=== PATIENT | male | born 1935 | race Caucasian/White ===

== ENCOUNTER → 2016-08-09 | Outpatient (CLI) | payer BC ==
[~2016-08-09] MED LIST: ALBU1AER9 INH; BISA5TAB PO; CALC500C3 PO; DOXY1TAB6 PO; FLVHFA110 INH; GLIP5TAB3 PO; INSDGI SC; INSUINJ14 SC; PRDFOPS OPB; PRED1SUS3 OPB; PRS5 PO; TAMS0.4C38 PO
== END | disposition home or self-care (01) ==
LOC: C.LAB1850 09:42
PROVIDERS: ATTEND Dermatology
DX: C61 Malignant neoplasm of prostate (principal)

== ENCOUNTER → 2016-09-12 | Outpatient (CLI) | payer BC ==
--- NOTE | 2016-09-12 15:22 | DIAGNOSTIC IMAGING REPORT ---
CHEST 2 VIEWS ROUTINE CLINICAL HISTORY: Shortness of breath, cough, respiratory tract infection COMPARISON STUDY: 02/16/2016 FINDINGS: The heart is mildly enlarged. There is mild elevation right hemidiaphragm. There is no failure. There is no focal pulmonary consolidation. There are no pleural effusions.[ IMPRESSION: No active disease in the chest. Electronically signed by: Tiago Michel M.D. 09/12/2016 3:21 PM Dictated Date/Time: 09/12/2016 3:20 PM
== END | disposition home or self-care (01) ==
LOC: C.RAD 14:56
PROVIDERS: ATTEND Family Medicine
DX: J22 Unspecified acute lower respiratory infection (principal)

== ENCOUNTER 2016-09-23 10:10 | Emergency (ER) | payer BC ==
[~2016-09-23] VITALS: Ht 172.7 cm; Wt 99.0 kg
[~2016-09-23 10:10] MED LIST changes: -DOXY1TAB6 PO; -FLVHFA110 INH; -PRDFOPS OPB
[2016-09-23 10:19] VITALS: Ht 172.7 cm; Wt 99.0 kg
[2016-09-23 10:51] VITALS: O2SAT 93
[2016-09-23] MEDS ORDERED: PRDFOPS OPB (10:59)
[2016-09-23] MEDS ORDERED: PRS5 PO (10:59)
[2016-09-23] MEDS ORDERED: FLVHFA110 INH (10:59)
--- NOTE | 2016-09-23 11:03 | EMERGENCY ROOM VISIT NOTE ---
History Report prepared by Evan: Denise Bray Under the Supervision of: Dr. Gilbert Chowdhury M.D. First contact with patient: 10:33 Chief Complaint: COUGH Stated Complaint: COUGH, MUCUS RUNS DOWN BACK OF THROAT History of Present Illness The patient is an 81 year old male who presents to the Emergency Room with complaints of a persistent illness that began one month ago. The patient states that two weeks ago he was placed on an antibiotic, but states that he is now on Flovent. He states that he has been experiencing a productive cough with congestion. He states that he has been diaphoretic and feverish. The patient notes that he is a diabetic. He states that he has had normal bowel movements, urination, appetite, and fluid intake. The patient notes that he had a chest x-ray earlier this week that did not show any signs of pneumonia. He denies being on any current blood thinners. Source of History: patient Onset: one month ago Position: other (global) Quality: other (illness) Timing: other (persistent) Associated Symptoms: + cough, + diaphoresis, + fevers Note: Associated Symptoms: congestion Review of Systems All systems have been listed, reviewed, and are negative other than those previously mentioned. Please see Additional Medical History Sheet. Past Medical & Surgical Medical Problems: (1) Diab Romi Wo Compl, Type Ii Or Unspec Type, Not Uncntrld (2) diverticulitis , rectal bleeding (3) Diverticulosis Colon (W/O Ment Of Hemorrhage) (4) Hyperlipidemia Nec/Nos (5) Hypertension Nos (6) Hypertrophy (Benign) Of Prostate W/O Urinary Obst & Oth Luts Family History Cancer Diabetes mellitus Lung disease Social History Smoking Status: Former Smoker Alcohol Use: none Drug Use: none Marital Status: Housing Status: lives with significant other Occupation Status: retired Current/Historical Medications Scheduled Doxycycline Hyclate (Doxycycline Hyclate), 1 TAB PO BID Finasteride (Finasteride), 5 MG PO QAM Fluticasone Propionate (Flovent Hfa), 2 PUFFS INH Q12 Glipizide (Glucotrol), 5 MG PO BID Insulin Glargine (Lantus), 40 UNITS SC QPM Prednisolone Acetate (Prednisolone Acetate), 1 DROP OPB QID Tamsulosin Hcl (Flomax), 0.4 MG PO QAM Scheduled PRN Bisacodyl (Ex-Lax Ultra), 1-2 TAB PO UD PRN for Constipation Calcium Carbonate (Tums), 1,000-1,500 MG PO for GI Upset Allergies Coded Allergies: Codeine (Verified Allergy, Unknown, FUNNY FEELING ON FACE, 09/23/16) Niacin (Verified Adverse Reaction, Unknown, FLUSHED, 09/23/16) Physical Exam Vital Signs Date Time Temp Pulse Resp B/P Pulse Ox O2 Delivery O2 Flow Rate FiO2 09/23/16 14:00 98 16 160/91 93 Room Air 09/23/16 13:44 98 93 09/23/16 12:08 87 16 166/91 95 Nasal Cannula 2.0 09/23/16 11:08 82 09/23/16 11:00 90 16 139/91 95 Nasal Cannula 2.0 09/23/16 10:51 93 Nasal Cannula 2.0 09/23/16 10:51 93 Nasal Cannula 2.0 09/23/16 10:46 100 20 178/94 91 Room Air 09/23/16 10:39 94 Room Air 09/23/16 10:19 36.6 100 20 145/80 95 Room Air Physical Exam GENERAL: Patient awake, alert, oriented x 3. Patient follows commands. Patient does not appear toxic. Patient is adequately hydrated and well- nourished. SKIN: No erythema, pallor, cyanosis or rash HEENT: Normal head, pupils equal, reactive to light and accommodation. Ears normal. Oral cavity and posterior pharynx appear normal. Neck: Without adenopathy, no neck vein distention. LUNGS: Clear to auscultation. No wheezes, no rales, no rhonchi. HEART: No murmurs. No gallops. No rubs ABDOMEN: Obese. No masses, no rebound, no hepatomegaly or splenomegaly. EXTREMITIES: No signs of trauma. No pedal or pretibial edema. No calf or thigh tenderness. NEUROLOGIC: Cranial nerves II-XII within normal limits. No gross motor sensory function deficits. Medical Decision & Procedures ER Provider Diagnostic Interpretation: X ray results are stated below per my interpretation and the radiologist's interpretation. CHEST 2 VIEWS ROUTINE CLINICAL HISTORY: Cough. COMPARISON STUDY: Chest radiograph September 12, 2016. FINDINGS: Elevation/eventration of the right hemidiaphragm is unchanged. Cardiomediastinal silhouette is stable. There is no pneumothorax or pleural effusion. There is no evidence of pulmonary edema. There is subtle asymmetric interstitial thickening within the right lower lung which may reflect a mild infectious process. IMPRESSION: No consolidation. Subtle asymmetric interstitial thickening within the right lower lung which could reflect a mild infectious process. Electronically signed by: Arjun Guillory M.D. 09/23/2016 11:54 AM Dictated Date/Time: 09/23/2016 11:52 AM Laboratory Results 09/23/16 11:14 Red Blood Count 4.87, Mean Corpuscular Volume 88.9, Mean Corpuscular Hemoglobin 31.0, Mean Corpuscular Hemoglobin Concent 34.9, Mean Platelet Volume 11.4, Neutrophils (%) (Auto) 76.2, Lymphocytes (%) (Auto) 11.8, Monocytes (%) (Auto) 8.5, Eosinophils (%) (Auto) 2.9, Basophils (%) (Auto) 0.4, Neutrophils # (Auto) 8.80, Lymphocytes # (Auto) 1.36, Monocytes # (Auto) 0.98, Eosinophils # (Auto) 0.33, Basophils # (Auto) 0.05 09/23/16 11:14 Test 09/23/16 11:02 09/23/16 11:14 Influenza Type A (RT-PCR) Neg for Influ A (NEG) Influenza Type B (RT-PCR) Neg for Influ B (NEG) White Blood Count 11.54 K/uL (4.8-10.8) Red Blood Count 4.87 M/uL (4.7-6.1) Hemoglobin 15.1 g/dL (14.0-18.0) Hematocrit 43.3 % (42-52) Mean Corpuscular Volume 88.9 fL (80-100) Mean Corpuscular Hemoglobin 31.0 pg (25-34) Mean Corpuscular Hemoglobin Concent 34.9 g/dl (32-36) Platelet Count 377 K/uL (130-400) Mean Platelet Volume 11.4 fL (7.4-10.4) Neutrophils (%) (Auto) 76.2 % Lymphocytes (%) (Auto) 11.8 % Monocytes (%) (Auto) 8.5 % Eosinophils (%) (Auto) 2.9 % Basophils (%) (Auto) 0.4 % Neutrophils # (Auto) 8.80 K/uL (1.4-6.5) Lymphocytes # (Auto) 1.36 K/uL (1.2-3.4) Monocytes # (Auto) 0.98 K/uL (0.11-0.59) Eosinophils # (Auto) 0.33 K/uL (0-0.5) Basophils # (Auto) 0.05 K/uL (0-0.2) RDW Standard Deviation 41.5 fL (36.4-46.3) RDW Coefficient of Variation 12.8 % (11.5-14.5) Immature Granulocyte % (Auto) 0.2 % Immature Granulocyte # (Auto) 0.02 K/uL (0.00-0.02) Prothrombin Time 10.9 SECONDS (9.0-12.0) Prothromb Time International Ratio 1.0 (0.9-1.1) Anion Gap 8.0 mmol/L (3-11) Est Creatinine Clear Calc Drug Dose 40.6 ml/min Estimated GFR () 45.8 Estimated GFR (Non- 39.5 BUN/Creatinine Ratio 13.1 (10-20) Calcium Level 9.1 mg/dl (8.5-10.1) Beta-Hydroxybutyric Acid 0.89 mg/dL (0.2-2.81) Laboratory results as stated above per my review. Medications Administered Medications (Trade) Dose Ordered Sig/Maura Route Start Time Stop Time Status Last Admin Dose Admin Albuterol (Ventolin Hfa Inhaler) 2 puffs NOW STAT INH 09/23/16 14:24 09/23/16 14:25 DC 09/23/16 14:39 2 PUFFS Insulin Human Regular (novoLIN-R U-100 PER UNIT) 8 units NOW STAT SC 09/23/16 14:29 09/23/16 14:30 DC 09/23/16 14:38 8 UNITS ECG Indication: other (illness) Rate (beats per minute): 97 Rhythm: normal sinus Findings: no acute ischemic change, no ectopy ED Course 1042: Past medical records reviewed. The patient was evaluated in room C2A. A complete history and physical examination was performed. 1319: I reevaluated the patient and he is doing well. The patient was previously on an antibiotic and the family is going to see what type it was. He is going to have an ambulatory trial. 1424: Ordered Albuterol 2 puffs INH. 1429: Ordered Insulin Human Regular 8 units sc. 1430: I reevaluated the patient and he is doing well. I discussed the exam findings with him and I discussed the treatment plan. He verbalized complete understanding and agreement. He is ready to go home. Medical Decision Nurses notes reviewed. Medical history sheet reviewed. Differential diagnosis includes but is not limited to: upper respiratory infection, pneumonia, bronchitis, other viral infection, influenza. Multiple labs, EKG and imaging were obtained. Please see above. The patient's blood sugar is elevated. He was given insulin. The patient has a questionable infiltrate on his chest x-ray. The patient was previously on Augmentin. He will be started on doxycycline. The patient was also encouraged to continue using albuterol. The patient is currently not hypoxic while here in the ED and I believe can safely return home. Impression Primary Impression: Pneumonitis Additional Impression: Diabetes mellitus out of control Scribe Attestation The scribe's documentation has been prepared under my direction and personally reviewed by me in its entirety. I confirm that the note above accurately reflects all work, treatment, procedures, and medical decision making performed by me. Departure Information Dispostion Home / Self-Care (Doxycycline) Prescriptions Doxycycline Hyclate (DOXYCYCLINE HYCLATE) 100 Mg Tab 1 TAB PO BID for 10 Days, #20 TAB Prov: Gilbert Chowdhury M.D. 09/23/16 Referrals Elio Benitez M.D. (PCP) Forms HOME CARE DOCUMENTATION FORM, IMPORTANT VISIT INFORMATION Patient Instructions My [facility] [address] [place] Additional Instructions One doxycycline twice a day for 10 days. Albuterol/Ventolin inhaler 2 puffs every 4 hours as needed for cough or shortness of breath. 650 mg of Tylenol every 4 hours as needed for aches, pain or fever. Drink extra fluids. Follow-up with your family physician within the next 10 days. Recheck your blood sugar when you get home. Take insulin according to your sliding scale. REST Problem Qualifiers
[2016-09-23 11:22] LABS: BASO % 0.4 %; BASO ABS # 0.05 K/uL (0-0.2); COMPLETE YES; EOS % 2.9 %; HEMATOCRIT 43.3 % (42-52); IG% 0.2 %; LYMPH % 11.8 %; LYMPH ABS # 1.36 K/uL (1.2-3.4); MEAN CELL VOLUME 88.9 fL (80-100); MEAN CORPUSCULAR HGB CONC 34.9 g/dl (32-36); MEAN PLATELET VOLUME 11.4 fL (7.4-10.4); MONO % 8.5 %; NEUT % 76.2 %; PLATELET COUNT 377 K/uL (130-400); RED BLOOD COUNT 4.87 M/uL (4.7-6.1); WHITE BLOOD COUNT 11.54 K/uL (4.8-10.8)
[2016-09-23 11:31] LABS: PROTHROMBIN TIME (PATIENT) 10.9 SECONDS (9.0-12.0)
[2016-09-23 11:39] LABS: BUN/CREATININE RATIO 13.1 (10-20); CALCIUM 9.1 mg/dl (8.5-10.1); CREATININE 1.6 mg/dl (0.60-1.40); POTASSIUM 4.8 mmol/L (3.5-5.1)
[2016-09-23 11:48] LABS: BETA-HYDROXYBUTYRATE 0.89 mg/dL (0.2-2.81)
--- NOTE | 2016-09-23 11:55 | DIAGNOSTIC IMAGING REPORT ---
CHEST 2 VIEWS ROUTINE CLINICAL HISTORY: Cough. COMPARISON STUDY: Chest radiograph September 12, 2016. FINDINGS: Elevation/eventration of the right hemidiaphragm is unchanged. Cardiomediastinal silhouette is stable. There is no pneumothorax or pleural effusion. There is no evidence of pulmonary edema. There is subtle asymmetric interstitial thickening within the right lower lung which may reflect a mild infectious process. IMPRESSION: No consolidation. Subtle asymmetric interstitial thickening within the right lower lung which could reflect a mild infectious process. Electronically signed by: Arjun Guillory M.D. 09/23/2016 11:54 AM Dictated Date/Time: 09/23/2016 11:52 AM
[2016-09-23 12:56] LABS: INFLUENZA A PCR Neg for Influ A (NEG); INFLUENZA B PCR Neg for Influ B (NEG)
[2016-09-23] MEDS ORDERED: ALBUTEROL HFA 8 GM INHALER INH STA (14:24)
[2016-09-23] MEDS ORDERED: DOXY1TAB6 PO (14:27)
[2016-09-23] MEDS ORDERED: NovoLIN-R INSULIN PER UNIT CHARGE SC STA (14:29)
[2016-09-23 15:03] VITALS: BP 131/83; PULSE 98; O2SAT 93
== END 2016-09-23 15:04 | disposition home or self-care (01) ==
LOC: C.EDB 10:13 → C.EDC 15:04
DX: J18.9 Pneumonia, unspecified organism (principal); E11.65 Type 2 diabetes mellitus with hyperglycemia; E66.9 Obesity, unspecified; E78.5 Hyperlipidemia, unspecified; I10 Essential (primary) hypertension; N40.0 Benign prostatic hyperplasia without lower urinary tract symptoms; Z79.4 Long term (current) use of insulin; Z79.84 Long term (current) use of oral hypoglycemic drugs; Z79.899 Other long term (current) drug therapy; Z88.5 Allergy status to narcotic agent; Z88.8 Allergy status to other drugs, medicaments and biological substances; Z87.891 Personal history of nicotine dependence; Z83.3 Family history of diabetes mellitus; Z83.6 Family history of other diseases of the respiratory system

== ENCOUNTER → 2016-11-01 | Outpatient (CLI) | payer BC ==
[~2016-11-01] MED LIST changes: -ALBU1AER9 INH; +FLVHFA110 INH; -INSUINJ14 SC; +PRDFOPS OPB; -PRED1SUS3 OPB
--- NOTE | 2016-11-01 10:04 | DIAGNOSTIC IMAGING REPORT ---
TWO VIEW CHEST CLINICAL HISTORY: Cough. Bronchitis. FINDINGS: PA and lateral chest radiographs are compared to study dated 09/23/2016. The heart is mildly enlarged and there is atherosclerotic calcification of the thoracic aorta. The pulmonary vasculature is noncongested. Mild chronic elevation of the right hemidiaphragm is similar to previous. There is chronic interstitial thickening and apical scarring. No airspace consolidation or pleural effusion is identified.. There is no pneumothorax. The skeletal structures are osteopenic. The bony thorax appears intact. IMPRESSION: Mild cardiac enlargement with no active disease in the chest. Electronically signed by: Lazaro Bustillos M.D. 11/01/2016 10:03 AM Dictated Date/Time: 11/01/2016 10:02 AM
== END | disposition home or self-care (01) ==
LOC: C.RAD 09:39
PROVIDERS: ATTEND Family Medicine
DX: J40 Bronchitis, not specified as acute or chronic (principal); I51.7 Cardiomegaly

== ENCOUNTER 2022-11-12 13:10 | Inpatient (IN) ==
--- NOTE | 2022-11-12 13:34 | Emergency Department Note ---
History of Present Illness General Chief complaint: Confusion Stated complaint: CONFUSED Time Seen by Provider: 11/12/22 13:18 Source: patient, family ( and daughter who are at the bedside), RN notes reviewed and old records reviewed Mode of arrival: ambulatory Limitations: no limitations History of Present Illness This patient is a 87-year-old male who is brought in by his family after they feel he has had increasing confusion over the last several weeks to months. No fall denies pain anywhere. no headache. no chest pain. no shortness of breath.his appetites been good. he has been eating and drinking as normal. He does have diabetes and takes insulin his blood sugar yesterday was 108. He has had no episodes of hypoglycemia. No fever chills or cough. No blood or melena in his stool. Normal bowel movements he has chronic blood in his urine due to prostate and bladder cancer history. No focal numbness or weakness no di fficulty speaking or swallowing. No fall or trauma. Home Medications Medication Instructions Recorded Confirmed Type insulin glargine 100 unit/mL (3 40 unit subcut QPM 07/04/18 04/25/22 History mL) subcutaneous pen (Basaglar KwikPen U-100 Insulin) tamsulosin 0.4 mg capsule 0.4 mg PO QAM 07/04/18 04/25/22 History magnesium oxide 400 mg PO DAILY 08/29/18 04/25/22 History prednisolone acetate (PF) 1 % eye 1 drp OPB DAILY 08/29/18 04/25/22 History drops,suspension Allergies Allergy/AdvReac Type Severity Reaction Status Date / Time ciprofloxacin Allergy Unknown Rash Verified 04/25/22 14:27 codeine Allergy Unknown FUNNY Verified 04/25/22 14:27 FEELING ON FACE niacin AdvReac Unknown FLUSHED Verified 04/25/22 14:27 Past Med/Surg History Medical History Bladder cancer (09/17/14) CKD (chronic kidney disease) Diabetes mellitus, type 2 IDDM Diverticulosis History of pneumonia RECURRENT PNEUMONIA (MOST RECENT 2016)- INHALER PRN Hyperlipidemia Stopped his medications for this on his own Obesity Prostate cancer Skin cancer of face Surgical History H/O vasectomy History of arthroscopy RIGHT KNEE History of back surgery LUMBAR History of bladder surgery TURBT History of cataract surgery Bilateral History of eye surgery Bilateral cornea transplants History of surgery TURBT and prostate biopsy 07/18/18 History of tooth extraction Hx of shoulder surgery Left shoulder surgery Family History Mother , in her 70s; Diabetes Emphysema lung Glaucoma Sister , Pt uncertain of her age of ;pt uncertain of her health history No problems noted. Brother , Pt uncertain of his health history; Family history of diabetes mellitus COPD (chronic obstructive pulmonary disease) Father , 90yo Suicide Brother , Pt uncertain of his healthy history; Diabetes Daughter No problems noted. 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; Feels Safe at Home: Yes caffeine: Yes (1-2 cups/day) during the past year weight has: remained stable Assistive Devices: Glasses and Hearing Aid - Bilateral Review of Systems A total of 10 systems reviewed and were otherwise negative Physical Exam Vital Signs Vital Signs - 24 hr 11/12/22 13:12 11/12/22 13:40 11/12/22 14:30 Temperature 36.3 C L Temperature Source Temporal Artery Scan Pulse Rate 78 85 Respiratory Rate 18 Respiratory Effort / Characteristics Non-Labored Spontaneous Respiratory Depth Normal Respiratory Pattern Regular Blood Pressure 138/67 Blood Pressure Mean 90 Blood Pressure Position Sitting Pulse Oximetry 96 Oxygen Delivery Method Room Air Room Air Sepsis Recent Fever Within 48 Hours No Sepsis New/Unexplained Change in Mental Status N/A Sepsis Action Taken by Nursing No Action Required General: Well developed well nourished older male who is awake and talkative making jokes. He is alert and orient x3 answering questions appropriately in no acute distress, breathing comfortably on room air. Normal speech, nonslurred. No aphasia HEENT: Normal cephalic atraumatic. Pupils are equal round and reactive to light. Extraocular movements are intact. Oropharynx is pink with moist mucous membranes. No swelling of the mouth lips or tongue. Neck: Supple with a midline trachea. No meningeal signs or stiffness, no JVD or bruits. No Stridor. Chest: Clear to auscultation bilaterally. No wheezes or rhonchi. No increased work of breathing. Heart: Regular rate and rhythm without murmurs or gallops. Abdomen: Soft nontender, nondistended without rebound guarding or rigidity. Extremities: No cyanosis clubbing or edema. No calf tenderness or assymetry Spine/Back. Non tender to palpation. No CVA tenderness Skin: Good turgor without rashes. Neurologic exam: Cranial nerves two through 12 are intact. Motor and sensation are intact and symmetrical throughout. No pronator drift. No tremor. Medical Decision Making Differential Diagnosis Intracranial hemorrhage or process, electrolyte or metabolic abnormality, cardiac disease, infection, diabetic complication, urinary tract infection Medical Records Attestation: I reviewed the patient's medical records. Home Medications Current Medication List: was personally reviewed by me Laboratory Data Attestation: I reviewed the patient's lab results. 11/12/22 13:40 11/12/22 13:40 Lab Results 11/12/22 11/12/22 11/12/22 Range/Units 13:40 13:40 13:40 WBC 9.84 (4.8-10.8) K/ul RBC 3.84 L (4.70-6.10) M/uL Hgb 10.9 L (14.0-18.0) g/dl Hct 33.6 L (42.0-52.0) % MCV 87.5 (80.0-100.0) fL MCH 28.4 (25.0-34.0) pg MCHC 32.4 (32.0-36.0) g/dL RDW Std Deviation 41.1 (36.4-46.3) fL RDW Coeff of [place] 13.0 (11.5-14.5) % Plt Count 322 (130-400) K/uL MPV 11.7 (9.4-12.4) fL Immature Gran % (Auto) 0.4 % Neut % (Auto) 77.2 % Lymph % (Auto) 8.9 % [place] % (Auto) 8.4 % Eos % (Auto) 4.0 % Baso % (Auto) 1.1 % Neut # (Auto) 7.59 H (1.40-6.50) K/uL Lymph # (Auto) 0.88 L (1.2-3.4) K/uL [place] # (Auto) 0.83 H (0.11-0.59) K/uL Eos # (Auto) 0.39 (0-0.50) K/uL Baso # (Auto) 0.11 (0-0.2) K/uL Immature Gran # (Auto) 0.04 (0.01-0.20) K/uL Sodium 135 L (136-145) mmol/L Potassium 5.1 (3.5-5.1) mmol/L Chloride 106 (98-107) mmol/L Carbon Dioxide 25 (21-32) mmol/L Anion Gap 4 (3-11) BUN 59 H (6-23) mg/dl Creatinine 4.74 H* (0.6-1.4) mg/dl Est Cr Clr Drug Dosing 11.7 ml/min Est GFR ( Amer) 11.8 ml/min Est GFR (Non-Af Amer) 10.2 ml/min BUN/Creatinine Ratio 12.4 (10-20) Glucose 102 H (70-99(Fasting)) mg/dl Calcium 8.0 L (8.6-10.3) mg/dl Total Bilirubin 0.4 (0.2-1.0) mg/dl AST 9 L (13-39) U/L ALT 7 (7-52) U/L Alkaline Phosphatase 83 (34-104) U/L Total Protein 5.9 L (6.0-8.3) gm/dl Albumin 3.2 L (3.4-5.0) gm/dl Globulin 2.7 (2.5-4.0) gm/dl Albumin/Globulin Ratio 1.2 (0.9-2) TSH 3.955 (0.300-4.500) uIu/ml Urine Color Urine Appearance (Clear) Urine pH (4.5-7.5) Ur Specific [place] (1.000-1.030) Urine Protein (Negative) Urine Glucose (UA) (Negative) Urine Ketones (Negative) Urine Blood (Negative) Urine Nitrite (Negative) Urine Bilirubin (Negative) Urine Urobilinogen (Negative) Ur Leukocyte Esterase (Negative) Urine RBC (0-4) /hpf Urine WBC (0-5) /hpf Ur Epithelial Cells (0-5) /lpf Urine Bacteria (Negative) 11/12/22 Range/Units 13:45 WBC (4.8-10.8) K/ul RBC (4.70-6.10) M/uL Hgb (14.0-18.0) g/dl Hct (42.0-52.0) % MCV (80.0-100.0) fL MCH (25.0-34.0) pg MCHC (32.0-36.0) g/dL RDW Std Deviation (36.4-46.3) fL RDW Coeff of [place]via (11.5-14.5) % Plt Count (130-400) K/uL MPV (9.4-12.4) fL Immature Gran % (Auto) % Neut % (Auto) % Lymph % (Auto) % [place] % (Auto) % Eos % (Auto) % Baso % (Auto) % Neut # (Auto) (1.40-6.50) K/uL Lymph # (Auto) (1.2-3.4) K/uL [place] # (Auto) (0.11-0.59) K/uL Eos # (Auto) (0-0.50) K/uL Baso # (Auto) (0-0.2) K/uL Immature Gran # (Auto) (0.01-0.20) K/uL Sodium (136-145) mmol/L Potassium (3.5-5.1) mmol/L Chloride (98-107) mmol/L Carbon Dioxide (21-32) mmol/L Anion Gap (3-11) BUN (6-23) mg/dl Creatinine (0.6-1.4) mg/dl Est Cr Clr Drug Dosing ml/min Est GFR ( Amer) ml/min Est GFR (Non-Af Amer) ml/min BUN/Creatinine Ratio (10-20) Glucose (70-99(Fasting)) mg/dl Calcium (8.6-10.3) mg/dl Total Bilirubin (0.2-1.0) mg/dl AST (13-39) U/L ALT (7-52) U/L Alkaline Phosphatase (34-104) U/L Total Protein (6.0-8.3) gm/dl Albumin (3.4-5.0) gm/dl Globulin (2.5-4.0) gm/dl Albumin/Globulin Ratio (0.9-2) TSH (0.300-4.500) uIu/ml Urine Color Red Urine Appearance Cloudy A (Clear) Urine pH 6.5 (4.5-7.5) Ur Specific [place] 1.020 (1.000-1.030) Urine Protein 3+ H (Negative) Urine Glucose (UA) Negative (Negative) Urine Ketones Negative (Negative) Urine Blood 3+ H (Negative) Urine Nitrite Negative (Negative) Urine Bilirubin Negative (Negative) Urine Urobilinogen Negative (Negative) Ur Leukocyte Esterase Trace H (Negative) Urine RBC >30 H (0-4) /hpf Urine WBC 5-10 H (0-5) /hpf Ur Epithelial Cells 0-5 (0-5) /lpf Urine Bacteria 1+ H (Negative) Imaging Data Attestation: I personally reviewed and interpreted this imaging study as fo llows: My Impression: Head CTthere is hypodensity in the right thalamus area. No acute hemorrhage or mass effect Chest x-rayno acute infiltrate, failure, pneumothorax seen Radiologist's Impression: Chest X-Ray 11/12/22 13:27 XR chest 1V portable CLINICAL HISTORY: weakness COMPARISON STUDY: Chest radiograph July 05, 2018. FINDINGS: Lung volumes are normal. Lungs are clear. There is no pneumothorax or pleural effusion. Cardiomediastinal silhouette is stable. There is no evidence for pulmonary edema. IMPRESSION: No acute cardiopulmonary findings. ACT 112: Negative or not required by law. Electronically signed by: Arjun Guillory M.D. 11/12/2022 2:[address] 11/12/22 13:27 CT OF THE HEAD WITHOUT CONTRAST CLINICAL HISTORY: Confusion. COMPARISON STUDY: No previous studies for comparison. CT DOSE: 773.57 mGy.cm TECHNIQUE: Helical axial images of the head were obtained without IV contrast. Automated exposure control was utilized for the study. A dose lowering technique was utilized adhering to the principles of ALARA. FINDINGS: No acute intracranial hemorrhage, midline shift or mass effect is present. Mild atrophy is noted. White matter hypodensity suggests small vessel disease. There is a 1.2 cm hypodensity within the anterior right thalamus on axial image 12 of 28. The ventricular system is unremarkable. The basal cisterns are patent. No extra-axial collections are present. There are no findings to suggest acute dural sinus thrombosis or acute territorial infarct. No significant calvarial abnormalities are present. Visualized portions of the sinuses and mastoid air cells are clear. IMPRESSION: 1. No acute intracranial hemorrhage. 2. Age indeterminate 1.2 cm infarct within the anterior right thalamus. ACT 112: Negative or not required by law. Electronically signed by: Arjun Guillory M.D. 11/12/2022 2:12 PM ECG Data Attestation: I personally reviewed and interpreted this ECG as follows: Indication: + weakness Rate (beats per minute): 79 Rhythm: + normal sinus and + other (Somewhat poor baseline due to artifact) ECG Intervals/blocks: + First degree AV block, + Normal QRS and + Prolonged QT ECG [place]: + Normal ECG ST segments: + Normal ST segments ECG Findings: + Other (Nonspecific T wave abnormality); no PACs or no PVCs Comparison ECG Date: from (06/25/18) Change: no significant change MDM Narrative This patient comes in with family is concerned that he is having increasing confusion over the last several weeks to months. He also says he feels foggy he seems fine when I talk to him. He has a normal neurologic exam answers all questions appropriately. IV access was established, blood work was obtained, EKG and urinalysis were also ordered. He was placed on a monitor tech in r oom B4. CAT scan was obtained. It does show a hypodensity/age in determinate stroke of the thalamus. Additionally blood work was significant for anemia with a hemoglobin of 10. The patient's had some chronic ongoing blood loss in his urine. That could be the culprit. He denies that he had a blood or black colors in his stool. He also has a creatinine of 4.6 which is significantly up compared to baseline. Potassium is not significantly elevated. Because of the elevated kidney function, intermittent confusion and need for a neuro/stroke work-up. I do think the patient needs to be admitted/observed. I have consulted the [facility] hospitalist to see him in the ER. COVID testing was negative. Continuous cardiac monitoring: Orders placed in EMR for continuous cardiac monitoring. Upon my interpretation patient was noted to be in normal sinus rhythm with a rate of 75 Impression & Plan Acute confusion, Right thalamic infarction, Lab test negative for COVID-19 virus, Renal failure, Anemia, Hematuria Discharge Plan Visit Data Chief Complaint: Confusion Stated Complaint: CONFUSED ED Provider: Gurinder Rose Discharge Problem: Acute confusion, Right thalamic infarction, Lab test negative for COVID-19 virus, Renal failure, Anemia, Hematuria Forms Stand Alone Forms: My [facility] Prescriptions Prescriptions: No Action tamsulosin 0.4 mg Capsule 0.4 mg PO QAM Basaglar KwikPen U-100 Insulin 100 unit/mL (3 mL) Insulin Pen 40 unit SUBCUT QPM magnesium oxide 400 mg magnesium tablet 400 mg PO DAILY Rx Instructions: AM prednisolone acetate (PF) 1 % drops,suspension 1 drp OPB DAILY Patient Comments: One drop daily to left eye Referrals Referrals: Elio Benitez MD [Primary Care Provider] -
[2022-11-12 14:01] LABS: Basophils # (auto) 0.11 K/uL (0-0.2); Basophils % (auto) 1.1 %; Eosinophils # (auto) 0.39 K/uL (0-0.50); Hematocrit (blood only) 33.6 % (42.0-52.0); Hemoglobin 10.9 g/dl (14.0-18.0); Immature Granulocytes # (auto) 0.04 K/uL (0.01-0.20); Immature Granulocytes % (auto) 0.4 %; Lymphocytes # (auto) 0.88 K/uL (1.2-3.4); Lymphocytes % (auto) 8.9 %; Mean Corpuscular Hemoglobin 28.4 pg (25.0-34.0); Mean Corpuscular Hgb Conc 32.4 g/dL (32.0-36.0); Mean Corpuscular Volume 87.5 fL (80.0-100.0); Mean Platelet Volume 11.7 fL (9.4-12.4); Monocytes # (auto) 0.83 K/uL (0.11-0.59); Monocytes % (auto) 8.4 %; Neutrophils # (auto) 7.59 K/uL (1.40-6.50); Neutrophils % (auto) 77.2 %; Platelet Count 322 K/uL (130-400); RDW Standard Deviation 41.1 fL (36.4-46.3); Red Blood Count 3.84 M/uL (4.70-6.10); White Blood Count 9.84 K/ul (4.8-10.8)
[2022-11-12 14:04] LABS: Appearance Urine Cloudy (Clear); Bilirubin Urine Negative (Negative); Blood Urine 3+ (Negative); Color Urine Red; Glucose Urine UA Negative (Negative); Ketones Urine Negative (Negative); Leukocyte Esterase Urine Trace (Negative); Nitrite Urine Negative (Negative); Protein Urine 3+ (Negative); Urobilinogen Urine Negative (Negative); pH Urine 6.5 (4.5-7.5)
[2022-11-12 14:11] LABS: RBC Urine >30 /hpf (0-4)
[2022-11-12 14:12] LABS: Bacteria Urine 1+ (Negative); Epithelial Cell Urine 0-5 /lpf (0-5)
--- NOTE | 2022-11-12 14:13 | CT Scan Report ---
CT OF THE HEAD WITHOUT CONTRAST CLINICAL HISTORY: Confusion. COMPARISON STUDY: No previous studies for comparison. CT DOSE: 773.57 mGy.cm TECHNIQUE: Helical axial images of the head were obtained without IV contrast. Automated exposure con trol was utilized for the study. A dose lowering technique was utilized adhering to the principles o f ALARA. FINDINGS: No acute intracranial hemorrhage, midline shift or mass effect is present. Mild atrophy is noted. White matter hypodensity suggests small vessel disease. There is a 1.2 cm hypodensity within t he anterior right thalamus on axial image 12 of . The ventricular system is unremarkable. The basal cisterns are patent. No extra-axial collections are present. There are no findings to suggest acute dural sinus thrombosis or acute territorial infarct. No significant calvarial abnormalities are prese nt. Visualized portions of the sinuses and mastoid air cells are clear. IMPRESSION: 1. No acute intracranial hemorrhage. 2. Age indeterminate 1.2 cm infarct within the anterior right thalamus. ACT 112: Negative or not required by law. Electronically signed by: Arjun Guillory M.D. 11/12/2022 2:12 PM
--- NOTE | 2022-11-12 14:18 | XRay Report ---
XR chest 1V portable CLINICAL HISTORY: weakness COMPARISON STUDY: Chest radiograph July 05, 2018. FINDINGS: Lung volumes are normal. Lungs are clear. There is no pneumothorax or pleural effusion. Car diomediastinal silhouette is stable. There is no evidence for pulmonary edema. IMPRESSION: No acute cardiopulmonary findings. ACT 112: Negative or not required by law. Electronically signed by: Arjun Guillory M.D. 11/12/2022 2:16 PM
[2022-11-12 14:22] LABS: Alanine Aminotransferase 7 U/L (7-52); Albumin Globulin Ratio 1.2 (0.9-2); Albumin Level 3.2 gm/dl (3.4-5.0); Alkaline Phosphatase 83 U/L (34-104); Anion Gap 4 (3-11); Aspartate Aminotransferase 9 U/L (13-39); BUN Creatinine Ratio 12.4 (10-20); Bilirubin,Total 0.4 mg/dl (0.2-1.0); Blood Urea Nitrogen 59 mg/dl (6-23); Carbon Dioxide 25 mmol/L (21-32); Chloride 106 mmol/L (98-107); Creatinine Clr Calc Pharmacy 11.7 ml/min; Est GFR (African American) 11.8 ml/min; Est GFR (Non-African American) 10.2 ml/min; Globulin 2.7 gm/dl (2.5-4.0); Glucose 102 mg/dl (70-99(Fasting)); Potassium 5.1 mmol/L (3.5-5.1); Sodium 135 mmol/L (136-145); Total Protein 5.9 gm/dl (6.0-8.3)
--- NOTE | 2022-11-12 14:54 | History & Physical Report ---
Date of Service November 12, 2022 Assessment & Plan (1) Failure to thrive: Plan: With associated ambulatory dysfunction, increased confusion and disinhibition Suspect most likely from subacute stroke seen on CT +/- COVID in Jul - possibly both related given COVID increases hypercoagulability ?due to CKD/JESSICA ?from COVID in July since decline appears to follow this timeline ?underlying dementia - TSH WNL, will get B12 with AM labs PT/OT (2) Right thalamic infarction: Plan: Will avoid antiplatelet due to history of urinary retention due to blood clots and ongoing chronic hematuria I suspect most likely this is the cause of his decline - appears to be subacute in nature Given renal function will complete workup with MRA brain and US carotids to assess cerebral arteries Brain MRI wo contrast to assess further strokes Stroke order set - continue NIH scores No need for permissive hypertension given non acute TTE Lipid profile and HbA1C with AM labs PT/OT/speech Consider neuro consult depending on results (3) JESSICA (acute kidney injury): Plan: Nb: patient has persisstent chronic hematuria US renal - to ro obstructive cause given hematuria and history of urinary retention Does not appear dehydrated on exam No specific urinary symtoms to warrant antibiotics but await urine and blood culture (4) Acute confusion: Plan: B12 and TSH with AM labs (5) Anemia: Plan: Iron studies, B12, folate, retic count in AM (6) Bladder cancer: Plan: History of such - consider urology eval given ongoing hematuria (7) Diabetes mellitus, type 2: Plan: HbA1C with AM labs Continue Basaglar (pt prescribed 40 units but only takes 25 units at night) Add Novolog: --Goal BSG Range: Low 110 mg/dL, High 140 mg/dL --Correction Factor: 45 mg/dL/unit --Carbohydrate ratio = 15 g/unit --BSGs ACHS if eating, q6h if npo Consult pharmacy for glycemic control Plan VTE Prophyalxis - chemical contraindicated in setting of gross hematuria Diet - T2DM Disposition - admit to med/tele Admission and Anticipated Discharge Date Admission Date: November 13, 2022 History of Present Illness Chief Complaint: Altered mental status, confusion Primary Care Provider: Elio Benitez MD Kingsley Ross is an 87 year old male who presnts to the ER with multiple concern from his family. He patient initially felt he needed to be here but then also tells me nothing is wrong. History mostly taken from his daughter and at bedside who have all the concerns but timelines are difficult to put together and may not be completely accurate. Relatively subacute deterioration over months but also had some more minor memory problems for the last few years. However dramatic decline over the last 2 months and especially over the last week. He is now sleeping all the time, not getting up to eat the last couple of days. Yesterday he was on the toilet for an hour and either was unable to get up or couldn't remember how. He has had gradual decline in his mobility and now requiring a walker (previously using a cane for many years). Also some concern with change in personality and he has become more mean spirited. Increased confusion and memory retention especially with remembering the right date. Nothing tastes right over the last 6 months. 2 months ago although he was no completely normal his reports they were still doing there usual activities and going out for breakfast and lunch to restaurants. On further questioning in July he had Covid which was treated at home with Simeon. With hindsight decline appears to correlate with getting this. The patient denies any chest pain, presyncope, orthopnea, PND, palpitations, shortness of breath, cough, nasal congestion, sore throat, sinus pain, abnormal pain, change in bowels, unintentional weight loss, hemoptysis, hematemesis, epistaxis, melena or bright red blood in stool. He has chronic hematuria from bladder cancer and was supposed to have 6 monthly cystoscopies although the patient reports he stopped getting these. Allergies Allergy/AdvReac Type Severity Reaction Status Date / Time ciprofloxacin Allergy Unknown Rash Verified 04/25/22 14:27 codeine Allergy Unknown FUNNY Verified 04/25/22 14:27 FEELING ON FACE niacin AdvReac Unknown FLUSHED Verified 04/25/22 14:27 Home Medications Medication Instructions Recorded Confirmed Type insulin glargine 100 unit/mL (3 25 unit subcut QPM 07/04/18 11/12/22 History mL) subcutaneous pen (Basaglar KwikPen U-100 Insulin) tamsulosin 0.4 mg capsule 0.4 mg PO QAM 07/04/18 11/12/22 History magnesium oxide 400 mg PO DAILY 08/29/18 11/12/22 History brimonidine 0.2 %-timolol 0.5 % 1 drp OPB BID 11/12/22 11/12/22 History eye drops difluprednate 0.05 % eye drops 1 drp OPR DAILY 11/12/22 11/12/22 History Past Med/Surg History Medical History (Updated 11/13/22 @ 06:44 by Fabrizio Stallworth MD) Bladder cancer (09/17/14) CKD (chronic kidney disease) Diabetes mellitus, type 2 IDDM Diverticulosis History of pneumonia RECURRENT PNEUMONIA (MOST RECENT 2016)- INHALER PRN Hyperlipidemia Stopped his medications for this on his own Obesity Prostate cancer Skin cancer of face Surgical History H/O vasectomy History of arthroscopy RIGHT KNEE History of back surgery LUMBAR History of bladder surgery TURBT History of cataract surgery Bilateral History of eye surgery Bilateral cornea transplants History of surgery TURBT and prostate biopsy 07/18/18 History of tooth extraction Hx of shoulder surgery Left shoulder surgery Family History Mother , in her 70s; Diabetes Emphysema lung Glaucoma Sister , Pt uncertain of her age of ;pt uncertain of her health history No problems noted. Brother , Pt uncertain of his health history; Family history of diabetes mellitus COPD (chronic obstructive pulmonary disease) Father , 90yo Suicide Brother , Pt uncertain of his healthy history; Diabetes Daughter No problems noted. 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; Other Information That Helps Us Care for You: No Feels Safe at Home: Yes Safety Concerns: Feels Safe At This Time caffeine: Yes (1-2 cups/day) during the past year weight has: remained stable Assistive Devices: Denture - Upper, Denture - Lower, Glasses and Walker Review of Systems Review of Systems: All systems reviewed & are unremarkable except as noted in HPI & below Physical Exam Constitutional: well developed; + not well nourished and no acute distress Eyes: + eyelid abnormality (blepharitis right sided), + conjunctival abnormality (right injected), PERRL and EOM intact bilaterally; no nystagmus ENMT: external ear and nose normal, oropharynx normal Neck: trachea midline, no thyromegaly Respiratory: normal respiratory effort; no respiratory distress Auscultation: + wheezes (expiratory); breath sounds present, no diminished lung sounds, no crackles, no rales and no rhonchi Cardiovascular: Rate/Rhythm: regular rate and regular rhythm Heart Sounds: no murmur Extremities: normal capillary refill and + pedal edema (2+ b/l pitting equal); no calf tenderness Gastrointestinal (Abdomen): normal bowel sounds, soft, nontender, no hepatosplenomegaly Musculoskeletal: Clubbing present Skin: Erythema, cysts and skin scarring on right side of face which patient reports is chronic and under ophthalmology/dermatology to treat with multiple prior skin cancers Neurologic: moves all extremities, awake and + confused (per family); no focal motor deficits Speech / Cognition: normal speech Motor/Sensory: no tremor, no pronator drift, no asterixis and no sensory deficit Cranial Nerves: PERRL, EOM intact bilaterally, tongue midline, normal hearing, able to rotate head bilaterally, able to elevate shoulders bilaterally, no nystagmus and symmetric palate elevation; + abnormal facial strength (right droop by mouth) Psychiatric: Orientation: alert, oriented to person and oriented to place; + not oriented to time Genitourinary: no CVA tenderness Lymphatic: no cervical lymphadenopathy Results & Data Results & Data Vital Signs (Past 12 Hours) Vital Signs Temp Pulse Resp BP Pulse Ox O2 Del Method 11/12/22 14:30 85 11/12/22 13:40 Room Air 11/12/22 13:12 36.3 C L 78 18 138/67 96 Room Air Laboratory Results Abnormal lab results 11/12/22 11/12/22 11/12/22 Range/Units 13:40 13:40 13:40 RBC 3.84 L (4.70-6.10) M/uL Hgb 10.9 L (14.0-18.0) g/dl Hct 33.6 L (42.0-52.0) % Neut # (Auto) 7.59 H (1.40-6.50) K/uL Lymph # (Auto) 0.88 L (1.2-3.4) K/uL [place] # (Auto) 0.83 H (0.11-0.59) K/uL ESR 37 H (0-20) mm/hr Sodium 135 L (136-145) mmol/L BUN 59 H (6-23) mg/dl Creatinine 4.74 H* (0.6-1.4) mg/dl Glucose 102 H (70-99(Fasting)) mg/dl Calcium 8.0 L (8.6-10.3) mg/dl AST 9 L (13-39) U/L Total Protein 5.9 L (6.0-8.3) gm/dl Albumin 3.2 L (3.4-5.0) gm/dl Urine Appearance (Clear) Urine Protein (Negative) Urine Blood (Negative) Ur Leukocyte Esterase (Negative) Urine RBC (0-4) /hpf Urine WBC (0-5) /hpf Urine Bacteria (Negative) 11/12/22 Range/Units 13:45 RBC (4.70-6.10) M/uL Hgb (14.0-18.0) g/dl Hct (42.0-52.0) % Neut # (Auto) (1.40-6.50) K/uL Lymph # (Auto) (1.2-3.4) K/uL [place] # (Auto) (0.11-0.59) K/uL ESR (0-20) mm/hr Sodium (136-145) mmol/L BUN (6-23) mg/dl Creatinine (0.6-1.4) mg/dl Glucose (70-99(Fasting)) mg/dl Calcium (8.6-10.3) mg/dl AST (13-39) U/L Total Protein (6.0-8.3) gm/dl Albumin (3.4-5.0) gm/dl Urine Appearance Cloudy A (Clear) Urine Protein 3+ H (Negative) Urine Blood 3+ H (Negative) Ur Leukocyte Esterase Trace H (Negative) Urine RBC >30 H (0-4) /hpf Urine WBC 5-10 H (0-5) /hpf Urine Bacteria 1+ H (Negative) Diagnostic Findings XR chest 1V portable CLINICAL HISTORY: weakness COMPARISON STUDY: Chest radiograph July 05, 2018. FINDINGS: Lung volumes are normal. Lungs are clear. There is no pneumothorax or pleural effusion. Cardiomediastinal silhouette is stable. There is no evidence for pulmonary edema. IMPRESSION: No acute cardiopulmonary findings. CT OF THE HEAD WITHOUT CONTRAST CLINICAL HISTORY: Confusion. COMPARISON STUDY: No previous studies for comparison. CT DOSE: 773.57 mGy.cm TECHNIQUE: Helical axial images of the head were obtained without IV contrast. Automated exposure control was utilized for the study. A dose lowering technique was utilized adhering to the principles of ALARA. FINDINGS: No acute intracranial hemorrhage, midline shift or mass effect is present. Mild atrophy is noted. White matter hypodensity suggests small vessel disease. There is a 1.2 cm hypodensity within the anterior right thalamus on axial image 12 of 28. The ventricular system is unremarkable. The basal cisterns are patent. No extra-axial collections are present. There are no findings to suggest acute dural sinus thrombosis or acute territorial infarct. No significant calvarial abnormalities are present. Visualized portions of the sinuses and mastoid air cells are clear. IMPRESSION: 1. No acute intracranial hemorrhage. 2. Age indeterminate 1.2 cm infarct within the anterior right thalamus. Medications Administered ER Medications Given: None ECG Rate (beats per minute): 79 Rhythm: normal sinus Findings: + other (non specific T wave abnormalities in inferior lateral leads) and + 1st degree AV block Comparison ECG Date: from (Jun,) Change: the following changes noted (T wave flattening is new) Code Status & VTE Plan Code Status DNR?DNI as discussed with the patient VTE Prophylaxis Plan VTE Prophylaxis will be ordered: No Reason for no VTE drug order: Contraindicated PG Care Time/CCT Total # of Minutes Spent Total Time Spent with Patient: Total time spent is greater than 50% in coordination of care (as documented) at patient's floor/unit and/or counseling patient: Coding Level of Care Code 48647 INT INP/OBS CARE 3/75MIN Diagnoses Failure to thrive Right thalamic infarction I63.81 JESSICA (acute kidney injury) N17.9 Acute confusion R41.0 Anemia D64.9 Bladder cancer C67.9 Diabetes mellitus, type 2 E11.9
[2022-11-12 16:10] LABS: C Reactive Protein < 0.50 mg/dl (0-0.5)
--- NOTE | 2022-11-12 17:13 | Ultrasound Report ---
RENAL ULTRASOUND CLINICAL HISTORY: ?JESSICA COMPARISON STUDY: CT of the abdomen and pelvis September 25, 2019. Renal ultrasound May 29, 2013. TECHNIQUE: Sonography of the kidneys and the urinary bladder was performed. FINDINGS: The right kidney measures 8.1 cm in maximal dimension and the left measures 7.2 cm. There i s no hydronephrosis. No renal calculus or mass is identified by sonography. There is moderate renal a trophy. Bladder wall irregularity is noted. IMPRESSION: 1. No hydronephrosis. Moderate bilateral renal atrophy. 2. Bladder wall irregularity. This is nonspecific and may be chronic. However, cystitis or urothelial lesion could appear similar. Findings could be correlated with urinalysis and urine cytology. ACT 112: Negative or not required by law. Electronically signed by: Arjun Guillory M.D. 11/12/2022 5:11 PM
--- NOTE | 2022-11-12 17:17 | Electrocardiogram Report ---
Test Reason : Blood Pressure : / mmHG Vent. Rate : 079 BPM Atrial Rate : 079 BPM P-R Int : 210 ms QRS Dur : 080 ms QT Int : 416 ms P-R-T Axes : 073 050 083 degrees QTc Int : 477 ms Sinus rhythm with 1st degree A-V block Diffuse Nonspecific T wave abnormality Prolonged QT Abnormal ECG When compared with ECG of 05-JUL-2018 10:22, Premature atrial complexes are no longer Present Nonspecific T wave abnormality now evident in Inferior leads Nonspecific T wave abnormality, worse in Lateral leads Confirmed by Jefe Monique ([id number]) on 11/12/2022 5:16:38 PM Referred By: REFERRED SELF Confirmed By:Jefe Monique
--- NOTE | 2022-11-12 17:32 | Ultrasound Report ---
CAROTID ARTERY ULTRASOUND CLINICAL HISTORY: stroke workup COMPARISON STUDY: None. TECHNIQUE: Real-time, grayscale, and color Doppler sonography of the carotid and vertebral arteries w as performed. Images were viewed in the transverse and longitudinal planes. FINDINGS: This study was compromised given difficulty suspending respiration. There is moderate atherosclerotic plaque. Velocity measurements are listed below. COMMON CAROTID PEAK SYSTOLIC VELOCITY (CM/S): RIGHT 61 LEFT 65 ICA PEAK SYSTOLIC VELOCITY (CM/S): RIGHT 68 LEFT 78 Systolic ratios between the internal to common carotid arteries were normal. Antegrade flow is seen in the vertebral arteries. The external carotid arteries are patent. IMPRESSION: Moderate plaque without sonographic evidence for a hemodynamically significant stenosis within the bilateral common carotid or internal carotid arteries. ACT 112: Negative or not required by law. Electronically signed by: Arjun Guillory M.D. 11/12/2022 5:31 PM
[2022-11-12] MEDS ORDERED: GLUCOSE 40% GEL 15 GM TUBE PO PRN (19:26)
[2022-11-12] MEDS ORDERED: CARBOHYDRATES FOR HYPOGLYCEMIA PO PRN (19:26)
[2022-11-12] MEDS ORDERED: PHARMACIST DISCHARGE MED REC CONSULT PRN (19:26)
[2022-11-12] MEDS ORDERED: GLUCAGON FOR INJ 1 MG VIAL SQ PRN (19:26)
[2022-11-12] MEDS ORDERED: PHARMACY GLYCEMIC MGMT CONSULT PRN (19:26)
[2022-11-12] MEDS ORDERED: DEXTROSE 50% 50 ML SYRINGE IV PRN (19:26)
[2022-11-12] MEDS ORDERED: GLUCOSE 10 TAB/TUBE PO PRN (19:26)
[2022-11-12] MEDS ORDERED: ACETAMINOPHEN 325 MG TAB PO PRN (19:26)
[2022-11-12] MEDS: INSULIN ASPART PER UNIT CHARGE SC SCH ×2 (20:33→21:30)
[2022-11-12] MEDS ORDERED: NON-FORMULARY MEDICATION (Insulin Glargine [Basaglar Kwikpen U-100 Insulin] 100 unit/mL (3 SQ SCH (21:00)
[2022-11-12] MEDS: BRIMONIDINE TARTRATE 0.2% 5ML OP SCH (21:29)
[2022-11-12] MEDS: TIMOLOL MALEATE 0.5% OP SOLN 5 ML BTL OP SCH (21:30)
--- NOTE | 2022-11-13 01:57 | Magnetic Resonance Report ---
Exam(s): MRI HEAD Without Contrast History: Reason for exam: stroke on CT. Exam: MR HEAD Without Contrast Comparison: CT head 11/12/2022 Technique: Multisequence multiplanar MRI of the brain on 1.5 Jessica MRI scanner Findings: On the diffusion images there is mild restricted diffusion hyperintensity on trace sequence and hypointensity on ADC map involving a 1.2 cm infarct in anterior right thalamus and corresponds to the CT finding. Findings are suggestive of an acute/subacute infarct. Remaining ardon-white matter differentiation is seen to be normal. Mild involutional changes are seen. Mild additional scattered chronic white matter changes of small vessel ischemic disease. Status post bilateral lens replacement. Globes, orbits, parasellar region, cerebellopontine angles are normal. Paranasal sinuses, mastoid air cells are clear. Impression: 1. Restricted diffusion suggesting acute to slightly subacute infarct involving the right anterior thalamus. 2. Mild involutional changes and some scattered chronic white matter changes of small vessel ischemic disease. Electronically signed by: Jason Chowdary MD 11/13/22 01:56 AM
--- NOTE | 2022-11-13 02:00 | Magnetic Resonance Report ---
Exam(s): MRA HEAD Without Contrast History: Reason for exam: stroke work up. Exam: MRA HEAD Without Contrast Comparison: MRI brain 11/12/2022 Technique: Using [id number] technique MRA of the [place] is performed. Reformatted MIP images are generated. Findings: Bilateral internal carotid at the level of the skull base, horizontal portion, vertical portion, cavernous carotid, bilateral supraclinoid portion, carotid terminus are patent. Ophthalmic artery, bilateral anterior and middle cerebral arteries are normal. Dominant right vertebral artery. Basilar junction, cerebellar arteries, posterior cerebral arteries are visualized and normal. Patent right posterior communicating artery. Impression: 1. Normal MRA of [place]. Electronically signed by: Jason Chowdary MD 11/13/22 01:59 AM
--- NOTE | 2022-11-13 06:35 | Communication Note ---
Date of Service: November 12, 2022 On review of [employer] from June 2022 Cr 4 therefore this is not JESSICA
[2022-11-13 08:33] LABS: Basophils # (auto) 0.09 K/uL (0-0.2); Basophils % (auto) 0.9 %; Eosinophils # (auto) 0.43 K/uL (0-0.50); Eosinophils % (auto) 4.4 %; Hematocrit (blood only) 31.9 % (42.0-52.0); Hemoglobin 10.5 g/dl (14.0-18.0); Immature Granulocytes # (auto) 0.03 K/uL (0.01-0.20); Immature Granulocytes % (auto) 0.3 %; Lymphocytes # (auto) 0.94 K/uL (1.2-3.4); Lymphocytes % (auto) 9.6 %; Mean Corpuscular Hemoglobin 28.2 pg (25.0-34.0); Mean Corpuscular Hgb Conc 32.9 g/dL (32.0-36.0); Mean Corpuscular Volume 85.5 fL (80.0-100.0); Mean Platelet Volume 12.1 fL (9.4-12.4); Monocytes # (auto) 1.04 K/uL (0.11-0.59); Monocytes % (auto) 10.6 %; Neutrophils # (auto) 7.26 K/uL (1.40-6.50); Neutrophils % (auto) 74.2 %; Platelet Count 315 K/uL (130-400); RDW Coefficient of Variation 12.9 % (11.5-14.5); RDW Standard Deviation 39.8 fL (36.4-46.3); Red Blood Count 3.73 M/uL (4.70-6.10); Reticulocyte % 1.1 % (0.5-2.0); Reticulocytes # 0.04 10^6/uL (0.02-0.10); White Blood Count 9.79 K/ul (4.8-10.8)
[2022-11-13 09:03] LABS: Partial Thromboplastin Ratio 1.1; Partial Thromboplastin Time 30.3 Seconds (21.0-31.0); Prothrombin Time 11.1 Seconds (9.0-12.0)
[2022-11-13] MEDS: INSULIN ASPART PER UNIT CHARGE SC SCH ×4 (09:06→21:08)
[2022-11-13] MEDS: MAGNESIUM OXIDE 400 MG TAB PO SCH (09:07)
[2022-11-13] MEDS: TAMSULOSIN HCL 0.4 MG CAP PO SCH (09:07)
[2022-11-13] MEDS: BRIMONIDINE TARTRATE 0.2% 5ML OP SCH ×2 (09:07→20:08)
[2022-11-13] MEDS: TIMOLOL MALEATE 0.5% OP SOLN 5 ML BTL OP SCH ×2 (09:07→21:08)
[2022-11-13 09:43] LABS: Estimated Average Glucose 131 mg/dl; Hemoglobin A1C 6.2 % (4.5-5.6)
[2022-11-13 09:46] LABS: BUN Creatinine Ratio 12.7 (10-20); Calcium 8.2 mg/dl (8.6-10.3); Chol HDL Ratio 5.2 (0-5); Creatinine Clr Calc Pharmacy 10.2 ml/min; Est GFR (African American) 11.2 ml/min; Est GFR (Non-African American) 9.7 ml/min; Potassium 4.9 mmol/L (3.5-5.1)
[2022-11-13 10:06] LABS: Ferritin 15.6 ng/ml (8-388)
--- NOTE | 2022-11-13 10:24 | Nephrology Consultation ---
Date of Consultation November 13, 2022 Assessment & Plan (1) JESSICA (acute kidney injury): * JESSICA likely on the basis of dehydration. Patient is clinically volume contracted * Renal US is negative for hydronephrosis but does show significant cortical atrophy c/w advanced CKD * Urinalysis is difficult to interpret due to bladder CA and h/o chronic hematuria * Will order FeNa, UPCR * Agree w/ gentle hydration * Monitor PRP, UO, volume status * If renal function fails to stabilize/improve with the above measures, consider consultation w/ Palliative Care (2) CKD (chronic kidney disease): * Baseline Cr reportedly 4.0 06/27 * Will request records from [facility] and [place] [id number] * Renal impairment likely on the basis of microvascular disease * Discussed ASSISTANT PROFESSOR OF MUSIC w/ patient today. He is aware of his advanced CKD and has attended dialysis education classes at [facility]. He does not feel that IHD will provide him with quality of life and he desires only conservative medical management (3) Mental status alteration: * Improved * Await blood and urine culture results * Has had hypoglycemia this hospitalization. May require reduction in insulin dosing due to advanced CKD (4) Right thalamic infarction: * 11/12/22 MRI reveals a new small thalamic infarct (5) Bladder cancer: * s/p fulguration. Urologist is Dr. Callum Calzada History of Present Illness Reason for Consultation: JESSICA/CKD Attending Physician: Rosa Schroeder MD History of Present Illness Mr. Ross is an 87 year old white male who is seen at the request of the [facility] Hospitalist Service for evaluation of JESSICA/CKD. At the time of my evaluation he was A&Ox3. He could follow commands and was able to provide a few details of his past medical history. Information for the HPI is obtained from the patient and the EMR and is summarized as follows: Mr. Ross has advanced CKD. His PCP was Dr. Gumaro Benitez. When Dr. Benitez retired Mr. Ross transtioned his care to [place] [address]. He reports that each provider did discuss his advanced CKD. Mr. Ross's also has advanced CKD and they attended a dialysis education class at [facility]. Mr. Ross reports that he does not desire aggressive medical intervention and does not feel that dialysis would provide him with quality of life. He desires only conservative medical care. Review of the EMR shows 06/27 [facility] w/ Cr 4.[address] Stallworth in his 11/12/22 communication report. Renal US this admission reveals bilateral renal cortical atrophy and no hydronephrosis. This is c/w advanced CKD. Mr. Ross's medical history is also significant for AODM, BPH s/p TURP, recurrent bladder CA s/p fulguration, chronic hematuria and hyperlipidemia. Mr. Ross was admitted to [facility] 11/12/22 for evaluation of MS changes. Brain MRI revealed a small thalamic infarct. Patient has been afebrile w/ normal WBC#. RA O2 sat has been 96%. SBP has been 100 - 190 mm Hg. Blood and Urine cultures are pending. His only home medications are insulin, Mag-ox and Tamsulosin. Blood sugar has been low overnight dipping into the 40 mg/dL range. Cr is elevated at 4.95. Allergies Allergy/AdvReac Type Severity Reaction Status Date / Time ciprofloxacin Allergy Unknown Rash Verified 04/25/22 14:27 codeine Allergy Unknown FUNNY Verified 04/25/22 14:27 FEELING ON FACE niacin AdvReac Unknown FLUSHED Verified 04/25/22 14:27 Home Medications Medication Instructions Recorded Confirmed Type insulin glargine 100 unit/mL (3 25 unit subcut QPM 07/04/18 11/12/22 History mL) subcutaneous pen (Basaglar KwikPen U-100 Insulin) tamsulosin 0.4 mg capsule 0.4 mg PO QAM 07/04/18 11/12/22 History magnesium oxide 400 mg PO DAILY 08/29/18 11/12/22 History brimonidine 0.2 %-timolol 0.5 % 1 drp OPB BID 11/12/22 11/12/22 History eye drops difluprednate 0.05 % eye drops 1 drp OPR DAILY 11/12/22 11/12/22 History Patient History Medical History (Updated 11/13/22 @ 10:55 by Lalo Barrientos MD) Bladder cancer (09/17/14) CKD (chronic kidney disease) Diabetes mellitus, type 2 IDDM Diverticulosis History of pneumonia RECURRENT PNEUMONIA (MOST RECENT 2016)- INHALER PRN Hyperlipidemia Stopped his medications for this on his own Obesity Prostate cancer Skin cancer of face Surgical History H/O vasectomy History of arthroscopy RIGHT KNEE History of back surgery LUMBAR History of bladder surgery TURBT History of cataract surgery Bilateral History of eye surgery Bilateral cornea transplants History of surgery TURBT and prostate biopsy 07/18/18 History of tooth extraction Hx of shoulder surgery Left shoulder surgery Family History Mother , in her 70s; Diabetes Emphysema lung Glaucoma Sister , Pt uncertain of her age of ;pt uncertain of her health history No problems noted. Brother , Pt uncertain of his health history; Family history of diabetes mellitus COPD (chronic obstructive pulmonary disease) Father , 90yo Suicide Brother , Pt uncertain of his healthy history; Diabetes Daughter No problems noted. 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; Other Information That Helps Us Care for You: No Feels Safe at Home: Yes Safety Concerns: Feels Safe At This Time caffeine: Yes (1-2 cups/day) during the past year weight has: remained stable Assistive Devices: Walker Review of Systems Constitutional: no fever Eyes: no problem reported Ear, Nose, Mouth, Throat: no problem reported Respiratory: no cough and no dyspnea Cardiovascular: no chest pain Gastrointestinal: + diarrhea/loose stools; no abdominal pain, no nausea and no vomiting Genitourinary: + hematuria; no dysuria or no difficulty urinating Neurologic: no problem reported Physical Exam Constitutional: not in distress Eyes: PERRL, conjunctivae normal, anicteric sclerae ENMT: Mouth: + dry oral mucous membranes Neck: trachea midline, no thyromegaly Respiratory: normal respiratory effort, lungs clear to auscultation Cardiovascular: RRR, no murmur, no edema Gastrointestinal (Abdomen): normal bowel sounds, soft, nontender, no hepatosplenomegaly Skin: + turgor decreased Neurologic: Speech / Cognition: normal speech and normal cognition Results & Data Vital Signs (Past 12 Hours) Vital Signs Temp Pulse Pulse Resp BP BP Pulse Ox 11/13/22 07:38 36.4 C L 75 18 180/83 H 96 11/13/22 06:45 77 11/13/22 02:48 36.5 C 74 18 162/70 H 95 O2 Del Method 11/13/22 07:38 Room Air 11/13/22 06:45 11/13/22 02:48 Room Air Laboratory Results Laboratory Tests 07/05/18 09/07/19 11/12/22 10:18 03:44 13:40 WBC Hgb Hct Plt Count Creatinine 1.53 H 2.15 H 4.74 H* Urine Color Urine pH Ur Specific [place] Urine Protein Urine Glucose (UA) Urine Blood Urine Nitrite Urine Bilirubin Urine RBC 11/12/22 11/13/22 13:45 07:48 WBC 9.79 Hgb 10.5 L Hct 31.9 L Plt Count 315 Creatinine Urine Color Red Urine pH 6.5 Ur Specific [place] 1.020 Urine Protein 3+ H Urine Glucose (UA) Negative Urine Blood 3+ H Urine Nitrite Negative Urine Bilirubin Negative Urine RBC >30 H Diagnostic Findings 11/12/22 CXR: Lung volumes are normal. Lungs are clear. There is no pneumothorax or pleural effusion. Cardiomediastinal silhouette is stable. There is no evidence for pulmonary edema. 11/12/22 Renal US: The right kidney measures 8.1 cm in maximal dimension and the left measures 7.2 cm. There is no hydronephrosis. No renal calculus or mass is identified by sonography. There is moderate renal atrophy. Bladder wall irregularity is noted. 11/12/22 Brain MRI: 1. Restricted diffusion suggesting acute to slightly subacute infarct involving the right anterior thalamus. 2. Mild involutional changes and some scattered chronic white matter changes of small vessel ischemic disease. 11/12/22 Blood and Urine cultures - PENDING PG Care Time/CCT Total # of Minutes Spent Total Time Spent with Patient: Total time spent is greater than 50% in coordination of care (as documented) at patient's floor/unit and/or counseling patient: Coding Level of Care Code 55273 IN/OBS CONSULT LVL 5,80M Diagnoses JESSICA (acute kidney injury) N17.9 CKD (chronic kidney disease) N18.9 Mental status alteration R41.82 Right thalamic infarction I63.81 Bladder cancer C67.9
[2022-11-13] MEDS: D5W AND NSS 1,000 ML IV SCH ×2 (10:38→23:01)
--- NOTE | 2022-11-13 11:05 | Neurology Consultation ---
Date of Consultation November 13, 2022 Assessment & Plan (1) Right thalamic infarction: (2) Acute confusion: Plan Patient was noted to have a [id number] acute right thalamic stroke on MRI. There is no corresponding symptoms (no numbness, dysesthesias, pain, or weakness ) referable to the stroke. His MRI shows severe generalized atrophy with [id number] old small vessel ischemic disease. 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 Recommendations: 1. Typically I would initiate 81 mg aspirin tablet daily For stroke prevention, but the family says he can't take blood thinners because of a history of hematuria. 2. control blood pressure as you are doing, aiming for a mean arterial pressure of 95-100. 3. given his advanced age and atrophy I would not initiate a high dose statin. I am not certain he needs any type of statin because his lipid parameters were within normal limits. 4. control glucose as you are doing. 5. there is no indication for additional testing for memory issues at this time however he could follow up as an outpatient, if desired. I may consider medication for memory at that time as well. 6. The patient needs a PCP for follow-up. Overall, spent a total of 75 minutes with this case including review of records, review of CT and MRI films, direct evaluation the patient at bedside, and discussion of the case with the patient, , daughter, and RN at bedside, as well as Dr. Schroeder including differential diagnosis and treatment options. History of Present Illness Reason for Consultation: Patient is an 87-year-old, who I was asked to see at the request of Dr. Schroeder, for neurologic consultation regarding new stroke Requesting Physician: Dr. Schroeder Attending Physician: Rosa Schroeder MD History of Present Illness the patient's and daughter are present in the room to help add to the history. patient has a history of diabetes and dyslipidemia. He also has a history of prostate and bladder cancer with hematuria. Over the last 6 months or moreThe patient has had the onset of obvious memory issues which have been progressive over the last few months. He has had some personality changes (more "mean spirited") as well as forgetfulness. He tends to sit around and sleep a lot. He is not active or participating in the household anymore. He was brought to the emergency room on November 12 after having sat on the toilet for over an hour and not knowing what to do or how to get off. He arrived to the emergency room on November 12, at 1312, with a temperature of 36.3, pulse of 78, respiratory rate 18, blood pressure 130/67, O2 saturation 96% On exam he had no focal findings and had normal speech and mentation. CBC showed mild anemia with a hemoglobin of 10.9 and a hematocrit of 33.6. Chem profile revealed an elevated BUN and creatinine and a sodium of 135. Sed rate was 37. CT scan of the head showed hypodense lesion in the right thalamus. MR angiography of the head was normal without vessels did no cysts or anomaly. An MRI of the brain was obtained and showed a small to medium-sized right thalamic stroke with severe generalized atrophy and moderate old small vessel ischemic changes. I reviewed all of these films. The patient has had no further events or spells overnight and repeat labs this morning show a CBC with slightly worse anemia than before, Chem profile with a BUN of 63 and creatinine of 4.95, and calcium low at 8.2. Iron was low as was transfer and. Triglycerides were 89 and total cholesterol 165. TSH was 3.9. B12 was low normal at 274. The patient tells me that he drinks about 1 beer per day although his states it might be 2 per day. Allergies Allergy/AdvReac Type Severity Reaction Status Date / Time ciprofloxacin Allergy Unknown Rash Verified 04/25/22 14:27 codeine Allergy Unknown FUNNY Verified 04/25/22 14:27 FEELING ON FACE niacin AdvReac Unknown FLUSHED Verified 04/25/22 14:27 Home Medications Medication Instructions Recorded Confirmed Type insulin glargine 100 unit/mL (3 25 unit subcut QPM 07/04/18 11/12/22 History mL) subcutaneous pen (Basaglar KwikPen U-100 Insulin) tamsulosin 0.4 mg capsule 0.4 mg PO QAM 07/04/18 11/12/22 History magnesium oxide 400 mg PO DAILY 08/29/18 11/12/22 History brimonidine 0.2 %-timolol 0.5 % 1 drp OPB BID 11/12/22 11/12/22 History eye drops difluprednate 0.05 % eye drops 1 drp OPR DAILY 11/12/22 11/12/22 History Patient History Medical History Bladder cancer (09/17/14) CKD (chronic kidney disease) Diabetes mellitus, type 2 IDDM Diverticulosis History of pneumonia RECURRENT PNEUMONIA (MOST RECENT 2016)- INHALER PRN Hyperlipidemia Stopped his medications for this on his own Obesity Prostate cancer Skin cancer of face Surgical History H/O vasectomy History of arthroscopy RIGHT KNEE History of back surgery LUMBAR History of bladder surgery TURBT History of cataract surgery Bilateral History of eye surgery Bilateral cornea transplants History of surgery TURBT and prostate biopsy 07/18/18 History of tooth extraction Hx of shoulder surgery Left shoulder surgery Family History Mother , in her 70s; Diabetes Emphysema lung Glaucoma Sister , Pt uncertain of her age of ;pt uncertain of her health history No problems noted. Brother , Pt uncertain of his health history; Family history of diabetes mellitus COPD (chronic obstructive pulmonary disease) Father , 90yo Suicide Brother , Pt uncertain of his healthy history; Diabetes Daughter No problems noted. 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; Other Information That Helps Us Care for You: No Feels Safe at Home: Yes Safety Concerns: Feels Safe At This Time caffeine: Yes (1-2 cups/day) during the past year weight has: remained stable Assistive Devices: Walker Review of Systems Constitutional: + fatigue and + weakness; no fever Eyes: no diplopia, no eye pain and no worsening vision Ear, Nose, Mouth, Throat: no ear pain, no tinnitus, no hearing loss, no dizziness, no snoring, no hoarseness and no dysphagia Respiratory: no cough and no dyspnea Cardiovascular: no chest pain, no palpitations and no lightheadedness Gastrointestinal: no abdominal pain, no nausea and no vomiting Musculoskeletal: no back pain, no neck pain, no radicular pain, no joint pain and no myalgia Integumentary: no rash and no lesions Neurologic: + confusion and + memory loss; no gait abnormality, no localized weakness, no generalized weakness, no tingling, no numbness, no tremor(s), no abnormal movements, no headache(s) and no abnormal speech Psychiatric: no depression, no irritability, no anxiety, no difficulty concentrating, no confusion and no hallucinations Endocrine: no fatigue and no flushing Hematologic / Lymphatic: no easy bleeding and no easy bruising Allergy / Immunological: no urticaria and no problem reported Exam (Neuro) Physical Exam: The patient is right-handed. The patient is awake, alert, and attentive. Speech is normal without any aphasia or dysarthria. The patient can name objects, repeat phrases, and has normal spontaneous speech. Mentation and thought processes are intact, with orientation to person, place and time, and normal fund of knowledge. Attention and concentration are normal. Mood and affect are normal and appropriate. General appearance and grooming are normal. Memory was reasonable to conversation Pupils are 4 mm bilaterally and reactive to light. Extraocular eye muscles are intact without nystagmus. Visual acuity and visual bhandari seem normal grossly to confrontation. There are no deficits to sensation in the face in all 3 distributions of the fifth cranial nerve bilaterally. Corneal reflexes are positive bilaterally. Facial strength and symmetry was normal bilaterally. Hearing seems normal bilaterally. Palate moves well without asymmetry. There is normal sternocleidomastoid and trapezius (shoulder shrug) strength bilaterally. Tongue is midline with good strength bilaterally. Neck has a full range of motion without discomfort. Cervical, thoracic, and lumbar spine are nontender to palpation. Gait is narrow base but cautious and needing the support of at least 1. With outstretched arms there is no drift. There are no resting, postural, or action tremors. There is no ataxia with finger to nose testing. There is good facility in the hands. No other abnormal involuntary movements are noted. Motor strength is 5/5 diffusely in the arms bilaterally including deltoids, biceps, triceps, brachioradialis, wrist flexors and extensors, financial market dealer, and intrinsic hand muscles. Motor strength is 5/5 diffusely in the legs bilaterally including hip flexors, quadriceps, hamstrings, gastrocnemius, tibialis anterior, tibialis posterior, and Peroneii muscles. Toe extensors are normal and there is good bulk in the extensor digitorum brevis muscles bilaterally. The limbs have good tone without rigidity or spasticity. There is no atrophy noted in the muscles. Muscle bulk is normal, there is no tenderness to palpation, no myotonia to percussion, and no fasciculations seen. Sensory examination is intact to touch and pin throughout all 4 limbs diffusely. Reflexes are 1/4 in the biceps, triceps, brachioradialis, and quadriceps tendons bilaterally. Achilles tendon reflexes were absent bilaterally. There is no clonus bilaterally. Toes are downgoing with plantar stimulation bilaterally. Peripheral pulses are present and of normal quality distally in all 4 limbs. There is no peripheral edema noted in the limbs. Results & Data Vital Signs (Past 12 Hours) Vital Signs Temp Pulse Pulse Resp BP BP Pulse Ox 11/13/22 07:38 36.4 C L 75 18 180/83 H 96 11/13/22 06:45 77 11/13/22 02:48 36.5 C 74 18 162/70 H 95 O2 Del Method 11/13/22 07:38 Room Air 11/13/22 06:45 11/13/22 02:48 Room Air PG Care Time/CCT Total # of Minutes Spent Total Time Spent with Patient: Total time spent is greater than 50% in coordination of care (as documented) at patient's floor/unit and/or counseling patient: Coding Level of Care Code 77353 INT INP/OBS CARE 3/75MIN Diagnoses Right thalamic infarction I63.81 Acute confusion R41.0
[2022-11-13] MEDS: amLODIPine BESYLATE 5 MG TAB PO SCH (11:42)
[2022-11-13] MEDS: DIFLUPREDNATE 0.05% OPR SCH (11:43)
--- NOTE | 2022-11-13 12:32 | Hospitalist Progress Note ---
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 Neurologist did not recommend a statin at his advanced age as his lipid parameters are within normal limits A1c was 6.2 PT/OT/speech Neurologist on board (3) JESSICA (acute kidney injury): Plan: US renal -negative for obstructive disease Patient appears clinically dehydrated Started on IV fluids with D5 normal saline Monitor BMP closely Avoid nephrotoxic medication Nephrology on board (4) Acute confusion: Plan: B12 and TSH WNL (5) Anemia: Plan: Iron studies, B12, folate, retic count in AM (6) Bladder cancer: Plan: History of such - consider urology eval given ongoing hematuria (7) Diabetes mellitus, type 2: Plan: HbA1C with AM labs Patient had an episode of hypoglycemia this morning This is in the setting of an acute kidney injury Hold long-acting insulin Added D5 normal saline Add Novolog: --Goal BSG Range: Low 110 mg/dL, High 140 mg/dL --Correction Factor: 45 mg/dL/unit --Carbohydrate ratio = 15 g/unit --BSGs ACHS if eating, q6h if npo Consult pharmacy for glycemic control Plan VTE Prophyalxis - chemical contraindicated in setting of gross hematuria Diet - T2DM Disposition - admit to med/tele Admission and Anticipated Discharge Date Admission Date: November 12, 2022 Subjective Patient is accompanied by his and daughter at the bedside. He denies any chest pain or shortness of breath. Review of Systems Review of Systems: All systems reviewed & are unremarkable except as noted in Subjective Physical Exam Physical Exam: General: Awake, conversant Heart: S1, S2/regular rate and rhythm, no murmur rubs or gallops Lungs: Clear to auscultation bilaterally. Normal effort Abdomen: Soft/nontender/nondistended. No hepatosplenomegaly Extremities: No clubbing/cyanosis. No edema Behavior: Appropriate, cooperative Results & Data Results & Data Vital Signs (Past 12 Hours) Vital Signs Temp Pulse Pulse Resp BP BP Pulse Ox 11/13/22 11:56 36.3 C L 75 16 143/69 H 97 11/13/22 07:38 36.4 C L 75 18 180/83 H 96 11/13/22 06:45 77 11/13/22 02:48 36.5 C 74 18 162/70 H 95 O2 Del Method 11/13/22 11:56 Room Air 11/13/22 07:38 Room Air 11/13/22 06:45 11/13/22 02:48 Room Air Laboratory Results Abnormal lab results 11/12/22 11/12/22 11/12/22 Range/Units 13:40 13:40 13:40 RBC 3.84 L (4.70-6.10) M/uL Hgb 10.9 L (14.0-18.0) g/dl Hct 33.6 L (42.0-52.0) % Neut # (Auto) 7.59 H (1.40-6.50) K/uL Lymph # (Auto) 0.88 L (1.2-3.4) K/uL [place] # (Auto) 0.83 H (0.11-0.59) K/uL ESR 37 H (0-20) mm/hr Sodium 135 L (136-145) mmol/L Chloride (98-107) mmol/L BUN 59 H (6-23) mg/dl Creatinine 4.74 H* (0.6-1.4) mg/dl Glucose 102 H (70-99(Fasting)) mg/dl POC Glucose (70-99) mg/dl Hemoglobin A1c (4.5-5.6) % Calcium 8.0 L (8.6-10.3) mg/dl Iron (35-175) mcg/dl Transferrin % Sat (20-50) % AST 9 L (13-39) U/L Total Protein 5.9 L (6.0-8.3) gm/dl Albumin 3.2 L (3.4-5.0) gm/dl Cholesterol/HDL Ratio (0-5) Urine Appearance (Clear) Urine Protein (Negative) Urine Blood (Negative) Ur Leukocyte Esterase (Negative) Urine RBC (0-4) /hpf Urine WBC (0-5) /hpf Urine Bacteria (Negative) 11/12/22 11/13/22 11/13/22 Range/Units 13:45 07:46 07:48 RBC 3.73 L (4.70-6.10) M/uL Hgb 10.5 L (14.0-18.0) g/dl Hct 31.9 L (42.0-52.0) % Neut # (Auto) 7.26 H (1.40-6.50) K/uL Lymph # (Auto) 0.94 L (1.2-3.4) K/uL [place] # (Auto) 1.04 H (0.11-0.59) K/uL ESR (0-20) mm/hr Sodium (136-145) mmol/L Chloride (98-107) mmol/L BUN (6-23) mg/dl Creatinine (0.6-1.4) mg/dl Glucose (70-99(Fasting)) mg/dl POC Glucose 43 L* (70-99) mg/dl Hemoglobin A1c (4.5-5.6) % Calcium (8.6-10.3) mg/dl Iron (35-175) mcg/dl Transferrin % Sat (20-50) % AST (13-39) U/L Total Protein (6.0-8.3) gm/dl Albumin (3.4-5.0) gm/dl Cholesterol/HDL Ratio (0-5) Urine Appearance Cloudy A (Clear) Urine Protein 3+ H (Negative) Urine Blood 3+ H (Negative) Ur Leukocyte Esterase Trace H (Negative) Urine RBC >30 H (0-4) /hpf Urine WBC 5-10 H (0-5) /hpf Urine Bacteria 1+ H (Negative) 11/13/22 11/13/22 11/13/22 Range/Units 07:48 07:48 08:07 RBC (4.70-6.10) M/uL Hgb (14.0-18.0) g/dl Hct (42.0-52.0) % Neut # (Auto) (1.40-6.50) K/uL Lymph # (Auto) (1.2-3.4) K/uL [place] # (Auto) (0.11-0.59) K/uL ESR (0-20) mm/hr Sodium (136-145) mmol/L Chloride 108 H (98-107) mmol/L BUN 63 H (6-23) mg/dl Creatinine 4.95 H* (0.6-1.4) mg/dl Glucose 39 L* (70-99(Fasting)) mg/dl POC Glucose 43 L* (70-99) mg/dl Hemoglobin A1c 6.2 H (4.5-5.6) % Calcium 8.2 L (8.6-10.3) mg/dl Iron 34 L (35-175) mcg/dl Transferrin % Sat 11 L (20-50) % AST (13-39) U/L Total Protein (6.0-8.3) gm/dl Albumin (3.4-5.0) gm/dl Cholesterol/HDL Ratio 5.2 H (0-5) Urine Appearance (Clear) Urine Protein (Negative) Urine Blood (Negative) Ur Leukocyte Esterase (Negative) Urine RBC (0-4) /hpf Urine WBC (0-5) /hpf Urine Bacteria (Negative) 11/13/22 11/13/22 Range/Units 08:08 11:29 RBC (4.70-6.10) M/uL Hgb (14.0-18.0) g/dl Hct (42.0-52.0) % Neut # (Auto) (1.40-6.50) K/uL Lymph # (Auto) (1.2-3.4) K/uL [place] # (Auto) (0.11-0.59) K/uL ESR (0-20) mm/hr Sodium (136-145) mmol/L Chloride (98-107) mmol/L BUN (6-23) mg/dl Creatinine (0.6-1.4) mg/dl Glucose (70-99(Fasting)) mg/dl POC Glucose 44 L* 170 H (70-99) mg/dl Hemoglobin A1c (4.5-5.6) % Calcium (8.6-10.3) mg/dl Iron (35-175) mcg/dl Transferrin % Sat (20-50) % AST (13-39) U/L Total Protein (6.0-8.3) gm/dl Albumin (3.4-5.0) gm/dl Cholesterol/HDL Ratio (0-5) Urine Appearance (Clear) Urine Protein (Negative) Urine Blood (Negative) Ur Leukocyte Esterase (Negative) Urine RBC (0-4) /hpf Urine WBC (0-5) /hpf Urine Bacteria (Negative) Diagnostic Findings Chest X-Ray 11/12/22 13:27 XR chest 1V portable CLINICAL HISTORY: weakness COMPARISON STUDY: Chest radiograph July 05, 2018. FINDINGS: Lung volumes are normal. Lungs are clear. There is no pneumothorax or pleural effusion. Cardiomediastinal silhouette is stable. There is no evidence for pulmonary edema. IMPRESSION: No acute cardiopulmonary findings. ACT 112: Negative or not required by law. Electronically signed by: Arjun Guillory M.D. 11/12/2022 2:[address] 11/12/22 13:27 CT OF THE HEAD WITHOUT CONTRAST CLINICAL HISTORY: Confusion. COMPARISON STUDY: No previous studies for comparison. CT DOSE: 773.57 mGy.cm TECHNIQUE: Helical axial images of the head were obtained without IV contrast. Automated exposure control was utilized for the study. A dose lowering technique was utilized adhering to the principles of ALARA. FINDINGS: No acute intracranial hemorrhage, midline shift or mass effect is present. Mild atrophy is noted. White matter hypodensity suggests small vessel disease. There is a 1.2 cm hypodensity within the anterior right thalamus on axial image 12 of 28. The ventricular system is unremarkable. The basal cisterns are patent. No extra-axial collections are present. There are no findings to suggest acute dural sinus thrombosis or acute territorial infarct. No significant calvarial abnormalities are present. Visualized portions of the sinuses and mastoid air cells are clear. IMPRESSION: 1. No acute intracranial hemorrhage. 2. Age indeterminate 1.2 cm infarct within the anterior right thalamus. ACT 112: Negative or not required by law. Electronically signed by: Arjun Guillory M.D. 11/12/2022 2:12 PM Renal Ultrasound 11/12/22 14:45 RENAL ULTRASOUND CLINICAL HISTORY: ?JESSICA COMPARISON STUDY: CT of the abdomen and pelvis September 25, 2019. Renal ultrasound May 29, 2013. TECHNIQUE: Sonography of the kidneys and the urinary bladder was performed. FINDINGS: The right kidney measures 8.1 cm in maximal dimension and the left measures 7.2 cm. There is no hydronephrosis. No renal calculus or mass is identified by sonography. There is moderate renal atrophy. Bladder wall irregularity is noted. IMPRESSION: 1. No hydronephrosis. Moderate bilateral renal atrophy. 2. Bladder wall irregularity. This is nonspecific and may be chronic. However, cystitis or urothelial lesion could appear similar. Findings could be correlated with urinalysis and urine cytology. ACT 112: Negative or not required by law. Electronically signed by: Arjun Guillory M.D. 11/12/2022 5:11 PM Carotid Doppler Study 11/12/22 15:37 CAROTID ARTERY ULTRASOUND CLINICAL HISTORY: stroke workup COMPARISON STUDY: None. TECHNIQUE: Real-time, grayscale, and color Doppler sonography of the carotid and vertebral arteries was performed. Images were viewed in the transverse and longitudinal planes. FINDINGS: This study was compromised given difficulty suspending respiration. There is moderate atherosclerotic plaque. Velocity measurements are listed below. COMMON CAROTID PEAK SYSTOLIC VELOCITY (CM/S): RIGHT 61 LEFT 65 ICA PEAK SYSTOLIC VELOCITY (CM/S): RIGHT 68 LEFT 78 Systolic ratios between the internal to common carotid arteries were normal. Antegrade flow is seen in the vertebral arteries. The external carotid arteries are patent. IMPRESSION: Moderate plaque without sonographic evidence for a hemodynamically significant stenosis within the bilateral common carotid or internal carotid arteries. ACT 112: Negative or not required by law. Electronically signed by: Arjun Guillory M.D. 11/12/2022 5:31 PM Brain MRI 11/13/22 00:08 Exam(s): MRI HEAD Without Contrast History: Reason for exam: stroke on CT. Exam: MR HEAD Without Contrast Comparison: CT head 11/12/2022 Technique: Multisequence multiplanar MRI of the brain on 1.5 Jessica MRI scanner Findings: On the diffusion images there is mild restricted diffusion hyperintensity on trace sequence and hypointensity on ADC map involving a 1.2 cm infarct in anterior right thalamus and corresponds to the CT finding. Findings are suggestive of an acute/subacute infarct. Remaining ardon-white matter differentiation is seen to be normal. Mild involutional changes are seen. Mild additional scattered chronic white matter changes of small vessel ischemic disease. Status post bilateral lens replacement. Globes, orbits, parasellar region, cerebellopontine angles are normal. Paranasal sinuses, mastoid air cells are clear. Impression: 1. Restricted diffusion suggesting acute to slightly subacute infarct involving the right anterior thalamus. 2. Mild involutional changes and some scattered chronic white matter changes of small vessel ischemic disease. Electronically signed by: Jason Chowdary MD 11/13/22 01:56 AM Head MRA 11/13/22 00:08 Exam(s): MRA HEAD Without Contrast History: Reason for exam: stroke work up. Exam: MRA HEAD Without Contrast Comparison: MRI brain 11/12/2022 Technique: Using [id number] technique MRA of the [place] is performed. Reformatted MIP images are generated. Findings: Bilateral internal carotid at the level of the skull base, horizontal portion, vertical portion, cavernous carotid, bilateral supraclinoid portion, carotid terminus are patent. Ophthalmic artery, bilateral anterior and middle cerebral arteries are normal. Dominant right vertebral artery. Basilar junction, cerebellar arteries, posterior cerebral arteries are visualized and normal. Patent right posterior communicating artery. Impression: 1. Normal MRA of [place]. Electronically signed by: Jason Chowdary MD 11/13/22 01:59 AM PG Care Time/CCT Total # of Minutes Spent Total Time Spent with Patient: Total time spent is greater than 50% in coordination of care (as documented) at patient's floor/unit and/or counseling patient: Coding Level of Care Code 56470 SUB INP/OBS CARE 2/35MIN Diagnoses Failure to thrive Right thalamic infarction I63.81 JESSICA (acute kidney injury) N17.9 Acute confusion R41.0 Anemia D64.9 Bladder cancer C67.9 Diabetes mellitus, type 2 E11.9
--- NOTE | 2022-11-13 14:16 | Pharmacy Report ---
Pharmacy Glycemic Short Note 2 - Date of Service November 13, 2022 - Glycemic Short BSG Results (Last 24 hours): 11/12/22 11/12/22 11/13/22 13:40 19:58 07:46 Glucose 102 H POC Glucose 98 43 L* 11/13/22 11/13/22 11/13/22 07:48 08:07 08:08 Glucose 39 L* POC Glucose 43 L* 44 L* 11/13/22 11/13/22 08:49 11:29 Glucose POC Glucose 96 170 H OUTPATIENT ANTIDIABETIC REGIMEN: * Lantus 25 units HS * A1c 6.2% 11/13/22 ASSESSMENT: * Patient admitted with acute/subacute stroke, only on basal insulin outpatient, A1c is within goal range * Patient has not received any insulin and had episode of hypoglycemia this morning- D5NS was added, diet is ordered * Hold basal insulin for now, carb ratio was also removed for now. Lunch BSG was 170 mg/dL with dextrose infusing, consider removal of dextrose if patient eating, BSGs become elevated PLAN FOR INPATIENT GLYCEMIC CONTROL: * Hold outpatient oral diabetes medications * Basal insulin * hold * Bolus insulin * NovoLog per scale ACHS or Q6hrs while NPO * Goal Range: Low 120 mg/dL - High 160 mg/dL * Correction Factor: 45 mg/dL/unit * Nutritional / Prandial insulin per carb ratio- hold for now
[2022-11-13 16:42] LABS: Creatinine Urine Random 101.3 mg/dl
[2022-11-14 06:47] LABS: Basophils # (auto) 0.09 K/uL (0-0.2); Basophils % (auto) 1.1 %; Eosinophils # (auto) 0.47 K/uL (0-0.50); Eosinophils % (auto) 5.6 %; Hematocrit (blood only) 30.9 % (42.0-52.0); Hemoglobin 10.2 g/dl (14.0-18.0); Immature Granulocytes # (auto) 0.03 K/uL (0.01-0.20); Immature Granulocytes % (auto) 0.4 %; Lymphocytes # (auto) 1.12 K/uL (1.2-3.4); Lymphocytes % (auto) 13.4 %; Mean Corpuscular Hemoglobin 28.3 pg (25.0-34.0); Mean Corpuscular Volume 85.6 fL (80.0-100.0); Mean Platelet Volume 11.9 fL (9.4-12.4); Monocytes # (auto) 0.88 K/uL (0.11-0.59); Monocytes % (auto) 10.6 %; Neutrophils # (auto) 5.74 K/uL (1.40-6.50); Neutrophils % (auto) 68.9 %; Platelet Count 316 K/uL (130-400); RDW Coefficient of Variation 12.8 % (11.5-14.5); RDW Standard Deviation 39.8 fL (36.4-46.3); Red Blood Count 3.61 M/uL (4.70-6.10); White Blood Count 8.33 K/ul (4.8-10.8)
[2022-11-14 07:07] LABS: BUN Creatinine Ratio 12.6 (10-20); Calcium 7.9 mg/dl (8.6-10.3); Est GFR (African American) 10.9 ml/min; Est GFR (Non-African American) 9.4 ml/min; Potassium 5.2 mmol/L (3.5-5.1)
[2022-11-14] MEDS ORDERED: PATIROMER CALCIUM SORBITEX 8.4 GM PACK PO ONE (07:57)
[2022-11-14] MEDS: INSULIN ASPART PER UNIT CHARGE SC SCH ×4 (08:43→20:30)
--- NOTE | 2022-11-14 08:43 | Nephrology Progress Note ---
Date of Service November 14, 2022 Assessment & Plan (1) JESSICA (acute kidney injury): Plan: * Progressive CKD. No response to IVF * Renal US is negative for hydronephrosis but does show significant cortical atrophy c/w advanced CKD * Urinalysis is difficult to interpret due to bladder CA and h/o chronic hematuria * FeNa 1.8%, UPCR - pending * Hold IVF * Monitor PRP, UO, volume status * Will consult Palliative Care - patient has expressed to Zane Bella MD and myself that he does not want HD. This is not consistent with his perceived goals of care or quality of life. We did discuss hospice care. He is open to returning home with home health/hospice (2) Hyperkalemia: Plan: * Will add low K restriction to diet order * Primary service has ordered Patiromer (3) CKD (chronic kidney disease): Plan: * Baseline Cr reportedly 4.0 06/27 * Renal impairment likely on the basis of microvascular disease * Records from Dr. Elio Benitez and Zane Adams indicate that Cr has been 4.0 dating back to at least early 04/27. Both providers have discussed NETWORKER with patient and he has attended dialysis education classes. He indicated on both accounts that HD is not consistent with his perceived goals of care or quality of life. I have asked that records be scanned into EMR * Discussed NETWORKER w/ patient today. He desires only conservative medical management. He wishes to return home with home health/hospice (4) Mental status alteration: Plan: * Improved * 11/12/22 Blood culture - NGTD * 11/12/22 Urind culture - reincubating * Has had hypoglycemia this hospitalization. May require reduction in insulin dosing due to advanced CKD (5) Right thalamic infarction: Plan: * 11/12/22 MRI reveals a new small thalamic infarct (6) Bladder cancer: Plan: * s/p fulguration. Urologist is Dr. Callum Calzada Admission and Anticipated Discharge Date Admission Date: November 12, 2022 Subjective Mr. Ross was evaluated in his hospital room this morning. He denied angina, dyspnea or uremic symptoms Review of Systems Constitutional: no fever Eyes: no problem reported Ear, Nose, Mouth, Throat: no problem reported Respiratory: no cough and no dyspnea Cardiovascular: no chest pain Gastrointestinal: + diarrhea/loose stools; no abdominal pain, no nausea and no vomiting Genitourinary: + hematuria; no dysuria or no difficulty urinating Neurologic: no problem reported Physical Exam Constitutional: not in distress Eyes: PERRL, conjunctivae normal, anicteric sclerae ENMT: Mouth: + dry oral mucous membranes Neck: trachea midline, no thyromegaly Respiratory: normal respiratory effort, lungs clear to auscultation Cardiovascular: RRR, no murmur, no edema Gastrointestinal (Abdomen): normal bowel sounds, soft, nontender, no hepatosplenomegaly Skin: + turgor decreased Neurologic: Speech / Cognition: normal speech and normal cognition Results & Data Vital Signs (Past 12 Hours) Vital Signs Temp Pulse Pulse Resp BP Pulse Ox O2 Del Method 11/14/22 07:41 65 11/14/22 07:32 36.6 C 81 20 130/73 97 Room Air 11/14/22 02:50 36.4 C L 90 20 130/69 93 Room Air 11/14/22 02:33 Room Air 11/14/22 01:13 77 11/13/22 23:26 36.6 C 74 16 146/74 H 95 Room Air Laboratory Results Laboratory Tests 11/14/22 11/14/22 06:14 06:14 WBC 8.33 Hgb 10.2 L Hct 30.9 L Plt Count 316 Sodium 137 Potassium 5.2 H Chloride 107 Carbon Dioxide 24 BUN 64 H Creatinine 5.06 H* Glucose 136 H Diagnostic Findings 11/12/22 CXR:Lung volumes are normal. Lungs are clear. There is no pneumothorax or pleural effusion. Cardiomediastinal silhouette is stable. There is no evidence for pulmonary edema. 11/12/22 Renal US:The right kidney measures 8.1 cm in maximal dimension and the left measures 7.2 cm. There is no hydronephrosis. No renal calculus or mass is identified by sonography. There is moderate renal atrophy. Bladder wall irregularity is noted. 11/12/22 Brain MRI: 1. Restricted diffusion suggesting acute to slightly subacute infarct involving the right anterior thalamus. 2. Mild involutional changes and some scattered chronic white matter changes of small vessel ischemic disease. 11/12/22 Blood cx - NGTD 11/12/22 Urine cx - reincubating PG Care Time/CCT Total # of Minutes Spent Total Time Spent with Patient: Total time spent is greater than 50% in coordination of care (as documented) at patient's floor/unit and/or counseling patient: Coding Level of Care Code 76811 SUB INP/OBS CARE 50MIN Diagnoses JESSICA (acute kidney injury) N17.9 Hyperkalemia E87.5 CKD (chronic kidney disease) N18.9 Mental status alteration R41.82 Right thalamic infarction I63.81 Bladder cancer C67.9
[2022-11-14] MEDS: BRIMONIDINE TARTRATE 0.2% 5ML OP SCH ×2 (08:47→20:26)
[2022-11-14] MEDS: TIMOLOL MALEATE 0.5% OP SOLN 5 ML BTL OP SCH ×2 (08:47→20:26)
[2022-11-14] MEDS: TAMSULOSIN HCL 0.4 MG CAP PO SCH (08:48)
[2022-11-14] MEDS: DIFLUPREDNATE 0.05% OPR SCH (08:48)
[2022-11-14] MEDS: amLODIPine BESYLATE 5 MG TAB PO SCH (08:48)
[2022-11-14] MEDS: MAGNESIUM OXIDE 400 MG TAB PO SCH (08:49)
--- NOTE | 2022-11-14 10:17 | Palliative Care Consultation ---
Date of Consultation November 14, 2022 Assessment & Plan (1) Palliative care by specialist: Met with pt. Provided overview of Palliative Medicine, a subspecialty that provides specialized medical care for people living with a serious illness by offering a focus on quality of life. Palliative Medicine is often conflated with hospice: I advised patient/family that Palliative and hospice can be partners but we are not the same. It is important to understand the difference so that we may be informed, and not afraid. Palliative Medicine works to improve QOL through reduction of symptom burden/more control over their illness, for both the patient and family. Palliative medicine clinicians are board certified, specially-trained and another member of the patient's medical care team. We often provide an extra layer of support because our care is based on the needs of the patient, not the prognosis; as such, it's appropriate at any age/advancing stage of a serious illness and can be provided along with curative treatment. Palliative Medicine clinicians are also trained in advanced communication methodologies, to facilitate complex discussions about advanced illness planning, which are needed to help assure that the treatment choices match the patient's goals, aka delivering Goal Concordant care. Finally, we discussed that hospice is a visiting nurse service that focuses on care delivered at the very end of life for patients with terminal illness, with life expectancy less than 6 month. (2) Advanced care planning/counseling discussion: Met with pt face to face for 45min for this ACP discussion: We reviewed that all chronic/progressive disease has a declining trajectory over time where facets of patient self-identity and independence are lost. Every acute event leads to a further decline, resulting- many times, in a new baseline. Advised that the greatest priority is to determine what matters most to pt, then family and to develop a plan of care that is aligned with those priorities. We discussed the goals of hospice as a patient service and the goals of care; we discussed EOL trajectories and transitions sarah the emotional impact of realizing mortality as a concrete reality from prior abstract considerations. Pt was reassured that no matter where they are along this trajectory, they are not alone - their medical team will remain by their side through their journey. Discussed the pros/cons of accepting help when especially weakened and distressed by pain-which would also help provide relief/decrease caregiver burden/strain. I provided education about the hospice benefit: an interdisciplinary program offered by nurses, nurses aides, social workers, c karen and a electromedical service engineer for patients with a terminal condition and a life expectancy of less than 6 months. This is covered by Medicare at 100%/no out of pocket expense to patient and all meds/supplies needed by patient for the reason they are on hospice are paid for/covered by hospice. The goal is assure quality of life of the patient in their home setting (home, snf, inpatient hospice setting) by providing symptoms management, psychosocial and spiritual support. However, they cannot offer 24 hours care and if the family is unable to provide that care, they will have to consider personal care with out of pocket cost vs. snf placement. We discussed the goals of hospice as a patient service and the goals of care; we discussed EOL trajectories and transitions sarah the emotional impact of realizing mortality as a concrete reality from prior abstract considerations. Pt was reassured that no matter where they are along this trajectory, they are not alone - their medical team will remain by their side through their journey. Discussed the pros/cons of accepting help when especially weakened and distressed by pain-which would also help provide relief/decrease caregiver burden/strain. I specifically advised patient that Medicare patients can receive care under both the ESRD benefit and the hospice benefit, however the english is whether or not the services are related to ESRD. If the patient's terminal condition is not related to ESRD, the patient may receive covered services under both the ESRD benefit and the hospice benefit ( https://www.cgsmedicare.[facility]Booking[facility]/coverage/coverage_guidelines/esrd.html#:~:text=M edicare%20patients%20can%20receive%20care,benefit%20and%20the%20hospice%20benefi t.) We spoke about how the rigidness of the Medicare Hospice Benefit creates a clear barrier to providing people on dialysis with the full potential of hospice services, which ideally requires weeks of care. The requirement that beneficiaries revoke all life-prolonging care associated with the hospice diagnosis in order to receive hospice services forces patients with limited prognosis to decide between continuing life-prolonging treatments that may add time versus stopping these treatments to receive symptom-based care. Dialysis is a unique life-prolonging treatment with a predictably short prognosis after treatments cease. So, dialysis patients are forced to choose a path that likely will shorten survival in order to have access to the option of high-quality end-of-life services. Not surprisingly, few people on dialysis choose hospice, and those who do often delay hospice enrollment until very near the end of life, often in the setting of a hospitalization. Pt educated re EOL w/ESRD:Pt stopping dialysis may live anywhere from one week to several weeks, depending on the amount of kidney function they have left and their overall medical condition.In hospitalized patients who stopped dialysis,confusion/agitation was reported to affect 70% of patients, followed by pain (55%), dyspnea (48%), nausea (36%), twitching/seizures (27%), anxiety/psychological distress (27%), pruritis (24%), and peripheral edema (21%). I addressedthe likelihood of progressive encephalopathy. Reassuredpatient/familythat symptoms can be adequately treatedbut drugs with sedating side effects may be necessary to ensure comfort. Discusseddiet: provide pt witha liberal, pleasure-based dietto focus on comfort and QOL, acknowledging that this mayworsen symptoms from edema. (Sources: - https://ww w.mypcnow.org/fast-fact/rrxhffjeqsfmnhl-hm-dtxagcre-receiving-dialysis/ -Howie WEINER. End-of-life care preferences and needs: perceptions of patients with chronic kidney disease. Clinical Journal of the [place] Society of Nephrology: CJASN. 2010;5:195-204. -Glenn KF, Francisco B, Natalio V and Cecy CHRISTOPHER. Employment among Patients Starting Dialysis in the [place]. Clinical Journal of the [place] Society of Nephrology: CJASN. 2018. -Brian BARRIOS, Adrián MJ, Kinsey DM. Practical considerations in dialysis withdrawal. To have that option is a blessing. NASREEN. 2003; 289:3338-5380. -Howie WEINER and Blanca MIRELES. Impact of pain and symptom burden on the health- related quality of life of hemodialysis patients. Journal of Pain and Symptom Management. 2010;39:477-85.) (3) Discussion about advance care planning held with family member: Family meeting scheduled tentatively for tomorrow afternoon approx 130pm with pt, and dtr (4) Confusion: (5) Vascular dementia: Patient recognizes "I'm not thinking straight, I know I'm having more issues with this." We reviewed the following facts about dementia: * Dementia is a terminal illness. Aggressive medical treatment for residents with advanced dementia is often inappropriate for medical reasons, has a low r ate of success, and can have negative outcomes that hasten functional decline and . ([place] Ger[employer] Society Ethics Committee and Clinical Practice and Models of Care Committee. J Am Geriatr Soc. 2014 Mar;62(8):1590-3 and Jaime SL, Besto JM, Calzada SC, Ramiro V. A national study of the location of for older persons with dementia. J Am Geriatr Soc 2005; 53(2):299-305 .) * Tube feeding in residents with advanced dementia does not increase survival. It does not prevent aspiration pneumonia, malnutrition or pressure ulcers. It does not reduce the risk of infections or improve functional status or comfort of the patient. (from: Oanh Damon LM T Percutaneous endoscopic gastrostomy does not prolong survival in patients with dementia. Arch Mosaic Floor Layer Med 2003; 163(11):0664-2229 AND Evan DE, Braeden GRACIELA, Miguelito J, Della S, Davey RS. High short-term mortality in hospitalized patients with advanced dementia - Lack of benefit of tube feeding. Arch Mosaic Floor Layer Med 2001; 161(4):594- 599.) * Simple strategies involving hands-on care by well-trained staff such as massage, oral hygiene, changes in diet, and hand-feeding -- can prevent infection and manage feeding problems without resort to tube-feeding. * Tube feeding does not prevent aspiration pneumonia and might actually increase its incidence, and does not prevent the consequences of malnutrition * Hand feeding can be provided until the beginning of the dying process when all physiological processes shut down, note that cognitively intact cancer patients indicate that dying residents do not feel hunger and thirst. * Voluntary refusal of food and liquids is often initiated by hospice patients and does not result in discomfort * The majority of older Americans whose underlying cause of is attributable to dementia on their certificate in nursing homes. State-level factors, including the availability of hospital and snf beds and the age of decedents in the population, explain, in part, the wide clqdm-xf-murry variability in the proportion of dementia-related deaths occurring in the hospital. * Older adults with dementia frequently receive acute care in their last year of life although Hospice care was more common for home/LONGTERM residents. Overall time in hospice remains short due to the underutilization of the hospice benefit for terminal dementia (Nena MM, Alfred JM, Henderson KM, Urban DE, [place] PY. Dementia Care in the Last Year of Life: Experiences in a Community Practice and in Penitentiary Facilities. J Palliat Care. 2022;38(2):135-142. doi:10.1177/[id number]) * Home Hospice is a valuable option for terminal dementia who desire to have peaceful EOL at home. Home hospice care for advanced dementia can improve symptom management and caregiver satisfaction, while decreasing caregiver burden, preventing hospitalizations and discontinuing unnecessary medications (Ruddy SA, Rowena R, Saundra G, et al. Home hospice for older people with advanced dementia: a yard pilot project [published correction appears in Isr J Health Policy Res. 2019 Feb 03;8(1):56]. Isr J Health Policy Res. 2019;8(1):42. Published 2018December 09. doi:10.1186/u78629-737-2483-h) * If the plan if for SNF placement, I recommend hospice at SNF: Hospice is a valuable service for persons with advanced dementia, particularly in management of pain, continuous involvement of the primary physician, and avoidance of hospitalization. Social support provided to caregivers is also important given their high levels of depressive symptoms and anxiety. The goal of care for residents with advanced dementia is primarily maintenance of function and patient should not be transferred to an acute care setting because hospitalization results in decline of functional abilities that do not recover after discharge back into snf. If this is desired, then Care Mgt follow up is needed to determine if pt is eligible for hospice at SNF/deferred to CM and primary team. (6) Right thalamic infarction: (7) CKD (chronic kidney disease), stage IV: Plan * Patient is consistent he does not want HD, states he attended pre HD classes with his . They both have ESRD and neither of them want HD. He states he feels overall he will not have the QOL he desires with HD and the side effects/time commitments/etc., of it are not to his liking. * We reviewed hospice. He is interested in having this added to his care after dc bc he wants to remain at home, no SNF, no LTC, no rehab and no return to hospital. He believes his family will be supportive of this decision. * Family anticipated to visit tomorrow afternoon, and dtr. He asked me to meet with them together tomorrow afternoon, so this is tentatively planned for 130pm. * He is fairly consistent in understanding that no HD will shorten life, but he accepts this as the option of HD with its SE etc are not appealing or acceptable to him for how he defines QOL for himself. I suspect he also in aprt recognizes some dementia is progressing though he was very reluctant to call it dementia and repeatedly said he had trouble remembering things only. * Kingsley has reasonable decisional capacity though mini Cog today supports + dementia. I did not feel he was delirious. Thank you for allowing us to participate in the ongoing care of this patient. Please don't hesitate to call or page with any additional concerns. Dr. Carole Acevedo DNP Director, Palliative Care History of Present Illness Reason for Consultation: ESKD, pt does not want HD Attending Physician: Fabrizio Ca History of Present Illness Per admitting note: "Kingsley Ross is an 87 year old male who presents to the ER with multiple concern from his family. He patient initially felt he needed to be here but then also tells me nothing is wrong. History mostly taken from his daughter and at bedside who have all the concerns but timelines are difficult to put together and may not be completely accurate. Relatively subacute deterioration over months but also had some more minor memory problems for the last few years. However dramatic decline over the last 2 months and especially over the last week. He is now sleeping all the time, not getting up to eat the last couple of days. Yesterday he was on the toilet for an hour and either was unable to get up or couldn't remember how. He has had gradual decline in his mobility and now requiring a walker (previously using a cane for many ye ars). Also some concern with change in personality and he has become more mean spirited. Increased confusion and memory retention especially with remembering the right date. Nothing tastes right over the last 6 months. 2 months ago although he was no completely normal his reports they were still doing there usual activities and going out for breakfast and lunch to restaurants. On further questioning in July he had Covid which was treated at home with Lagevrio. With hindsight decline appears to correlate with getting this. The patient denies any chest pain, presyncope, orthopnea, PND, palpitations, shortness of breath, cough, nasal congestion, sore throat, sinus pain, abnormal pain, change in bowels, unintentional weight loss, hemoptysis, hematemesis, epistaxis, melena or bright red blood in stool. He has chronic hematuria from bladder cancer and was supposed to have 6 monthly cystoscopies although the patient reports he stopped getting these." A ebhq-zn-lcwzpujh acute right thalamic stroke on MRI. There were no corresponding symptoms. He has a hx of progressively worsening decline in memory along with confusion, consistent with vascular dementia. His family's concerns reported as ambulatory dysfunction, increased confusion and disinhibition. The Brain MRI showed acute to subacute infarct involving right thalamus, the brain MRA normal and carotid ultrasound negative. Patient has a prior hx bladder cancer s/p fulguration and is followed by Dr Sierra Calzada/urology. Nephrology consult 11/13/22: * "Renal impairment likely on the basis of microvascular disease * Discussed STAIR BUILDER w/ patient today. He is aware of his advanced CKD and has attended dialysis education classes at [facility]. He does not feel that IHD will provide him with quality of life and he desires only conservative medical management" Nephrology follow up today reports: * "Records from Dr. Elio Benitez and Zane Adams indicate that Cr has been 4.0 dating back to at least early 04/27. Both providers have discussed STAIR BUILDER with john hunt and he has attended dialysis education classes. He indicated on both accounts that HD is not consistent with his perceived goals of care or quality of life. I have asked that records be scanned into EMR * Discussed STAIR BUILDER w/ patient today. He desires only conservative medical management" Patient is reported to be alert to self. Unsure about date/time. Forgetful and lacks situational awareness per nursing (see notes from 11/14/22 at 0335). He requires OOB guard assist with walker. At time of my visit, he is seated at edge of bed, awake and alert to person, place and can tell me it is November of 2022. He does not recall all the reasons for coming to ED but is able to tell me "they were worried because I wasn't acting like myself, I'm not thinking as good anymore and I was weak." He is able to tell me he has end stage renal disease and adds that his also has end-stage renal disease for which she had also been referred to predialysis education.He states that from the sessions and the education he obtained, he and his decided they are not interested in dialysis. He recognizes that this will shorten his life and questions at this junction what amount of time may be remaining. Allergies Allergy/AdvReac Type Severity Reaction Status Date / Time ciprofloxacin Allergy Unknown Rash Verified 04/25/22 14:27 codeine Allergy Unknown FUNNY Verified 04/25/22 14:27 FEELING ON FACE niacin AdvReac Unknown FLUSHED Verified 04/25/22 14:27 Home Medications Medication Instructions Recorded Confirmed Type insulin glargine 100 unit/mL (3 25 unit subcut QPM 07/04/18 11/12/22 History mL) subcutaneous pen (Basaglar KwikPen U-100 Insulin) tamsulosin 0.4 mg capsule 0.4 mg PO QAM 07/04/18 11/12/22 History magnesium oxide 400 mg PO DAILY 08/29/18 11/12/22 History brimonidine 0.2 %-timolol 0.5 % 1 drp OPB BID 11/12/22 11/12/22 History eye drops difluprednate 0.05 % eye drops 1 drp OPR DAILY 11/12/22 11/12/22 History Patient History Medical History (Updated 11/14/22 @ 10:37 by Carole Acevedo DNP) Advanced care planning/counseling discussion Bladder cancer (09/17/14) CKD (chronic kidney disease) CKD (chronic kidney disease), stage IV Confusion Diabetes mellitus, type 2 IDDM Discussion about advance care planning held with family member Diverticulosis History of pneumonia RECURRENT PNEUMONIA (MOST RECENT 2016)- INHALER PRN Hyperlipidemia Stopped his medications for this on his own Obesity Palliative care by specialist Prostate cancer Skin cancer of face Vascular dementia Surgical History H/O vasectomy History of arthroscopy RIGHT KNEE History of back surgery LUMBAR History of bladder surgery TURBT History of cataract surgery Bilateral History of eye surgery Bilateral cornea transplants History of surgery TURBT and prostate biopsy 07/18/18 History of tooth extraction Hx of shoulder surgery Left shoulder surgery Family History Mother , in her 70s; Diabetes Emphysema lung Glaucoma Sister , Pt uncertain of her age of ;pt uncertain of her health history No problems noted. Brother , Pt uncertain of his health history; Family history of diabetes mellitus COPD (chronic obstructive pulmonary disease) Father , 90yo Suicide Brother , Pt uncertain of his healthy history; Diabetes Daughter No problems noted. 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; Other Information That Helps Us Care for You: No Feels Safe at Home: Yes Safety Concerns: Feels Safe At This Time caffeine: Yes (1-2 cups/day) during the past year weight has: remained stable Assistive Devices: Walker Review of Systems Review of Systems: Unobtainable due to cognitive status Physical Exam Constitutional: WD/WN, vitals as above Eyes: PERRL, conjunctivae normal, anicteric sclerae ENMT: external ear and nose normal, oropharynx normal (+SAUK-SUIATTLE moderate) Neck: trachea midline, no thyromegaly (no stridor) Respiratory: normal respiratory effort, able to speak in complete sentences and symmetric chest movement Auscultation: + diminished lung sounds Cardiovascular: RRR, no murmur, no edema Gastrointestinal (Abdomen): normal bowel sounds, soft, nontender, no hepatosplenomegaly Musculoskeletal: mild generalized weakness. repositions in bed without assistance, gait not assessed Skin: no rashes, warm and dry Neurologic: Mini-Cog Instructions for Administration & Scoring Step 1: Three Word Registration - Version 1: banana, sunrise, chair Step 2: Clock Drawing- beverly 1230 appropriately but did not list all the numbers Step 3: Three Word Recall - chair Version 1 Banana [place] Chair Version 4 [facility] Finger Version 2 Leader Season Table Version 5 [place] Picture Version 3 Village Kitchen Baby Version 6 Antoine Serna Word Recall: ___1___ (0-3 points) 1 point for each word spontaneously recalled without cueing. Clock Draw: __1____ (0 or 2 points) Normal clock = 2 points. A normal clock has all numbers placed in the correct sequence and approximately correct position (e.g., 12, 3, 6 and 9 are in anchor positions) with no missing or duplicate numbers. Hands are pointing to the 11 and 2 (11:10). Hand length is not scored. Inability or refusal to draw a clock (abnormal) = 0 points. Total Score: ___2___ (0-5 points) Total score = Word Recall score + Clock Draw score. A cut point of <3 on the Mini-Cog has been validated for dementia screening, but many individuals with clinically meaningful cognitive impairment will score higher. When greater sensitivity is desired, a cut point of <4 is recommended as it may indicate a need for further evaluation of cognitive status. References 1. Deana Clements, Gaye PIKE, Michelle PJ et al. The Mini-Cog as a screen for dementia: Validation in a population-based sample. J Am Geriatr Soc 2003;51:65016942. 2. Gaye Campuzano, Juvenal Reece et al. Improving identification of cognitive impairment in primary care. Int J Geriatr Psychiatry 2006;21: 835565. 3. Gaye Villalta et al. Time that tells: Critical clock-drawing errors for dementia screening. Int Psychogeriatr. 2007; 20(3): 550280. 4. Jerilyn K, Srikanth J et al. Cognitive tests to detect dementia: A systematic review and meta-analysis. NASREEN Mosaic Floor Layer Med. 2015; E1-E9. 5. Rolan Lynch et al. Screening for cognitive impairment in an elderly population: Acceptability and results using different versions of the Mini-Cog. J Am Geriatr Soc 2011; 59: 309-213. 6. Rolan Lynch et al. Finding dementia in primary care: The results of a clinical demonstration project. J Am Geriatr Soc 2012; 60: 210-217. 7. Gaye Reece & Deana Clements. The Mini-Cog: Lap Grinder operating characteristics with the expert and naive raters. Int J Geriatr Psychiatry 2001; 16: 216-222. Mini-Cog Karthikeyan Leblanc. All rights reserved. Reprinted with permission of the author solely for clinical and educational purposes. May not be modified or used for commercial, marketing, or research purposes without permission of the author ([email or web address]). v. 08.24.15 Psychiatric: Orientation: alert, oriented to person, oriented to place and cooperative Apperance: appropriately dressed Eye Contact: good eye contact Speech: normal rate/rhythm/volume of speech Affect: + flat affect Results & Data Vital Signs (Past 12 Hours) Vital Signs Temp Pulse Pulse Resp BP Pulse Ox O2 Del Method 11/14/22 07:41 65 11/14/22 07:32 36.6 C 81 20 130/73 97 Room Air 11/14/22 02:50 36.4 C L 90 20 130/69 93 Room Air 11/14/22 02:33 Room Air 11/14/22 01:13 77 11/13/22 23:26 36.6 C 74 16 146/74 H 95 Room Air Laboratory Results data reviewed Diagnostic Findings data reviewed PG Care Time/CCT Total # of Minutes Spent Total Time Spent: 100 Total Time Spent with Patient: Total time spent is greater than 50% in coordination of care (as documented) at patient's floor/unit and/or counseling patient: I spent 100 minutes overall addressing this case: 15 in medical data review/discussion with referring provider(s) and/or preparation for the visit 20 in direct interaction with the patient 45 Advance Care Planning/Goals of Care discussions as detailed above in note (must be >16min) 10 in subsequent review and synthesis of assessment and plan 10 in communicating with other providers regarding the patient's case: nursing, primary team Advanced Care Planning 51314 Advanced Care Planning 30 Min 31989 Advanced Care Planning Additional 30 [place] [address] IN/OBS CONSULT LVL 5,80M Patient Type New History Comprehensive Exam Comprehensive Medical Decision Making High Complexity Diagnoses Palliative care by specialist Z51.5 Advanced care planning/counseling discussion Z71.89 Discussion about advance care planning held with family member Z71.0 Confusion R41.0 Vascular dementia F01.50 Right thalamic infarction I63.81 CKD (chronic kidney disease), stage IV N18.4 Additional Codes Advanced Care Planning - 16540 Advanced Care Planning 30 Min: 99839 Advanced Care Planning 30 Min ([id number]) Advanced Care Planning - 16422 Advanced Care Planning Additional 30 Min: 31159 Advanced Care Planning Additional 30 Min ([id number])
[2022-11-14] MEDS: D5W AND NSS 1,000 ML IV SCH (15:13)
--- NOTE | 2022-11-14 17:32 | XCELERA ---
[id number] \\[id number]
--- NOTE | 2022-11-14 19:05 | Hospitalist Progress Note ---
Date of Service November 14, 2022 Assessment & Plan (1) JESSICA (acute kidney injury): Plan: JESSICA in setting of CKD stage 4 By report baseline Cr is ~4 At time of admission patient was volume contracted and thus IV fluids have been given since then Despite IV fluids his creatinine has not improved Recent imaging of kidneys without obstruction Appreciate nephrology consult Patient consistently states he would NOT want hemodialysis if his situation called for such Thus, palliative care has been consulted to refine goals of care Patient/family/palliative to meet tomorrow Cont IV fluids and repeat BMP in am (2) CKD (chronic kidney disease), stage IV: Plan: by report has baseline Cr of about 4 see #1 above (3) Hyperkalemia: Plan: 2nd to #1 patiromer x 1 dose repeat BMP in am (4) Acute metabolic encephalopathy: Plan: 2nd to severe hypoglycemia, JESSICA, and likely subacute right sided thalamic stroke (5) Failure to thrive: Plan: By report had COVID infection in 07/2022 and he has declined on global scale since then. He now has JESSICA in setting of CKD, subacute thalamic stroke, etc All of the above likely contributing Palliative care meeting with pt & family tomorrow to refine goals of care (6) Right thalamic infarction: Plan: Brain MRI showed acute to subacute infarct involving right thalamus Brain MRA normal Carotid ultrasound negative Echo without source of thrombus Tele without a.fib/flutter Pt has little if any symptoms/signs of this stroke Neurology consult appreciated anti-platelets to be avoided due to ongoing hematuria PT, OT, speech evals appreciated (7) Anemia: Plan: Iron studies c/w Fe def anemia B12/folate wnl depending on goals of care discussion we can then decide about iron replacement moving forward likely has Fe def due to chronic hematuria (8) Bladder cancer: Plan: History of such - 2014 per records Is ongoing hematuria possibly due to such?? Depending on goals of care discussion could consider urine cytologies (9) Diabetes mellitus, type 2: Plan: A1c 6.2% had severe hypoglycemia at time of presentation to hospital likely that his insulin requirements are much less in setting of advanced CKD, failure to thrive, etc. Long-acting insulin is on hold Novolog SSI has been ordered as needed if BSGs trend up then remove dextrose from IV fluids (10) Vascular dementia: (11) Hematuria: Plan: 2nd to bladder ca? other? see above (12) Hypoglycemia: Plan: see above no low BSGs today (13) Back pain: Plan: tylenol 1gm TID treat symptoms for now - will not pursue work-up in light of possibly transitioning to hospice Plan updated by phone this evening Admission and Anticipated Discharge Date Admission Date: November 12, 2022 Subjective patient sitting in chair during the visit he initially complained of back pain "up near his shoulder blades" and told me he has this pain at home the story later changed, stating it started in the hospital we discussed the recent MRI brain showing the stroke he denies any left-sided weakness, slurred speech, or difficulty swallowing he did recall that he met with Dr Acevedo from palliative care and that a family meeting is planned for tomorrow tele overnight wnl Review of Systems Review of Systems: gen - eating fair cv - no chest pain pulm - no dyspnea GI - no pain Physical Exam Physical Exam: gen - NAD, sitting in chair neck - no JVD mouth - MMM back - no tenderness to palpation along the entire spine; no pain over either scapula heart - RRR, s1 s2 lungs - CTA b/l abd - soft NT ND BS+ ext - pulses 2+ b/l, trace edema b/l neuro - no facial droop; speech fluent/clear; strength 5/5 x 4 exts Results & Data Results & Data Vital Signs (Past 12 Hours) Vital Signs Temp Pulse Pulse Resp BP Pulse Ox O2 Del Method 11/14/22 14:18 69 11/14/22 15:03 36.3 C L 67 20 125/72 98 Room Air 11/14/22 11:05 36.3 C L 70 20 116/66 97 Room Air 11/14/22 07:41 65 11/14/22 07:32 36.6 C 81 20 130/73 97 Room Air Laboratory Results Laboratory Results - last 24 hr 11/13/22 11/13/22 11/14/22 07:48 20:20 06:14 WBC 8.33 RBC 3.61 L Hgb 10.2 L Hct 30.9 L MCV 85.6 MCH 28.3 MCHC 33.0 RDW Std Deviation 39.8 RDW Coeff of Milvia 12.8 Plt Count 316 MPV 11.9 Immature Gran % (Auto) 0.4 Neut % (Auto) 68.9 Lymph % (Auto) 13.4 [place] % (Auto) 10.6 Eos % (Auto) 5.6 Baso % (Auto) 1.1 Neut # (Auto) 5.74 Lymph # (Auto) 1.12 L [place] # (Auto) 0.88 H Eos # (Auto) 0.47 Baso # (Auto) 0.09 Immature Gran # (Auto) 0.03 Sodium Potassium Chloride Carbon Dioxide Anion Gap BUN Creatinine Est Cr Clr Drug Dosing Est GFR ( Amer) Est GFR (Non-Af Amer) BUN/Creatinine Ratio Glucose POC Glucose 232 H Calcium Folate 13.46 11/14/22 11/14/22 11/14/22 06:14 07:18 11:23 WBC RBC Hgb Hct MCV MCH MCHC RDW Std Deviation RDW Coeff of Milvia Plt Count MPV Immature Gran % (Auto) Neut % (Auto) Lymph % (Auto) [place] % (Auto) Eos % (Auto) Baso % (Auto) Neut # (Auto) Lymph # (Auto) [place] # (Auto) Eos # (Auto) Baso # (Auto) Immature Gran # (Auto) Sodium 137 Potassium 5.2 H Chloride 107 Carbon Dioxide 24 Anion Gap 6 BUN 64 H Creatinine 5.06 H* Est Cr Clr Drug Dosing 10.0 Est GFR ( Amer) 10.9 Est GFR (Non-Af Amer) 9.4 BUN/Creatinine Ratio 12.6 Glucose 136 H POC Glucose 137 H 180 H Calcium 7.9 L Folate 11/14/22 16:20 WBC RBC Hgb Hct MCV MCH MCHC RDW Std Deviation RDW Coeff of Milvia Plt Count MPV Immature Gran % (Auto) Neut % (Auto) Lymph % (Auto) [place] % (Auto) Eos % (Auto) Baso % (Auto) Neut # (Auto) Lymph # (Auto) [place] # (Auto) Eos # (Auto) Baso # (Auto) Immature Gran # (Auto) Sodium Potassium Chloride Carbon Dioxide Anion Gap BUN Creatinine Est Cr Clr Drug Dosing Est GFR ( Amer) Est GFR (Non-Af Amer) BUN/Creatinine Ratio Glucose POC Glucose 153 H Calcium Folate PG Care Time/CCT Total # of Minutes Spent Total Time Spent with Patient: Total time spent is greater than 50% in coordination of care (as documented) at patient's floor/unit and/or counseling patient: Coding Level of Care Code 02063 SUB INP/OBS CARE 2/35MIN Diagnoses JESSICA (acute kidney injury) N17.9 CKD (chronic kidney disease), stage IV N18.4 Hyperkalemia E87.5 Acute metabolic encephalopathy G93.41 Failure to thrive Right thalamic infarction I63.81 Anemia D64.9 Bladder cancer C67.9 Diabetes mellitus, type 2 E11.9 Vascular dementia F01.50 Hematuria R31.9 Hypoglycemia E16.2 Back pain M54.9
[2022-11-14] MEDS: ACETAMINOPHEN 500 MG TAB PO SCH (20:30)
[2022-11-15] MEDS: D5W AND NSS 1,000 ML IV SCH (01:55)
[2022-11-15] MEDS ORDERED: SODIUM CHLORIDE 0.9% 1000ML 1,000 ML IV SCH (05:15)
[2022-11-15 06:30] LABS: BUN Creatinine Ratio 12.7 (10-20); Calcium 7.6 mg/dl (8.6-10.3); Creatinine Clr Calc Pharmacy 9.9 ml/min; Est GFR (African American) 11.2 ml/min; Est GFR (Non-African American) 9.6 ml/min; Potassium 4.9 mmol/L (3.5-5.1)
[2022-11-15] MEDS: BRIMONIDINE TARTRATE 0.2% 5ML OP SCH (07:31)
[2022-11-15] MEDS: TAMSULOSIN HCL 0.4 MG CAP PO SCH (07:32)
[2022-11-15] MEDS: amLODIPine BESYLATE 5 MG TAB PO SCH (07:32)
[2022-11-15] MEDS: ACETAMINOPHEN 500 MG TAB PO SCH ×2 (07:32→13:07)
[2022-11-15] MEDS: TIMOLOL MALEATE 0.5% OP SOLN 5 ML BTL OP SCH (07:33)
[2022-11-15] MEDS: DIFLUPREDNATE 0.05% OPR SCH (07:33)
[2022-11-15] MEDS: INSULIN ASPART PER UNIT CHARGE SC SCH ×2 (07:35→11:59)
--- NOTE | 2022-11-15 08:24 | Neurology Progress Note ---
Date of Service November 15, 2022 Assessment & Plan (1) Right thalamic infarction: (2) Acute confusion: Plan Patient had a small acute/subacute right thalamic stroke on MRI. There is no corresponding symptoms (no numbness, dysesthesias, pain, or weakness ) referable to the stroke. Neurologic examination today remains nonfocal. In addition, the MRI shows severe generalized atrophy with [id number] old small vessel ischemic disease. The patient has a history of progressive memory and confusion problems, probably secondary to an aging/atrophy and vascular dementia. he seems stable and improved today compared to admission. Recommendations: 1. Typically I would initiate 81 mg aspirin tablet daily For stroke prevention, but the family says he can't take blood thinners because of a history of hematuria. Certainly, anticoagulants would be a risk factor for johnny turia, but I am not convinced that an 81 mg aspirin tablet daily (or every other day) would put him at risk for hematuria. 2. Continue Norvasc 10 a day, his blood pressure is adequately controlled c urrently 3. I am not certain he needs any type of statin because his lipid parameters were within normal limits. 4. control glucose as you are doing. 5. there is no indication for additional testing for memory issues at this time however he could follow up as an outpatient, if desired. I may consider medication for memory at that time as well. 6. The patient needs a PCP for follow-up. Overall, spent a total of 50 minutes with this case including review of records, review of CT and MRI films, direct evaluation the patient at bedside, and discussion of the case with the patient and RN at bedside, as well as Dr. Ca including differential diagnosis and treatment options. Admission and Anticipated Discharge Date Admission Date: November 12, 2022 Subjective Has no complaint of pain or headache. He feels "great". Blood pressure is 130/68 and he is afebrile. He is sitting up without dizziness, eating well. He did have some abdominal pain yesterday but figured out it was because he was laying on his heart monitor. He denies any numbness or tingling in his arms and legs. he denies any weakness. Laboratory studies reveal a normal potassium today with the elevated BUN and creatinine as before. Glucose is 156 and calcium is low at 7.6. Magnesium is normal at 2.4 Results & Data Vital Signs (Past 12 Hours) Vital Signs Temp Pulse Resp BP Pulse Ox O2 Del Method 11/15/22 07:46 36.7 C 77 20 130/68 97 Room Air 11/15/22 04:00 36.4 C L 82 18 127/68 95 Room Air 11/14/22 23:00 36.4 C L 72 19 137/67 98 Room Air Exam (Neuro) Physical Exam: patient is awake and alert. He is pleasant and cooperative with a good mood and affect. He follows commands well. Extraocular eye muscles are intact without nystagmus. There is no facial droop. Coordination is normal in the arms without tremor or ataxia. Strength is essentially 5/5 in all major muscle groups in the arms and legs both proximally distally although he has weakness in the right deltoid ( which I believe is a rotator cuff issue). Patient is sitting up eating well. PG Care Time/CCT Total # of Minutes Spent Total Time Spent with Patient: Total time spent is greater than 50% in coordination of care (as documented) at patient's floor/unit and/or counseling patient: Coding Level of Care Code 91926 SUB INP/OBS CARE 3/50MIN Diagnoses Right thalamic infarction I63.81 Acute confusion R41.0
--- NOTE | 2022-11-15 08:40 | Nephrology Progress Note ---
Date of Service November 15, 2022 Assessment & Plan (1) JESSICA (acute kidney injury): Plan: * Progressive CKD. No response to IVF * Renal US is negative for hydronephrosis but does show significant cortical atrophy c/w advanced CKD * Urinalysis is difficult to interpret due to bladder CA and h/o chronic hematuria * FeNa 1.8%, UPCR - pending * Hold IVF * Monitor PRP, UO, volume status * Patient has expressed to Zane Bella MD and myself that he does not want HD. This is not consistent with his perceived goals of care or quality of life. We did discuss hospice care. He will have a family meeting this afternoon and hopes to return home with home health/hospice today. No outpatient Nephrology follow up will be needed as patient will be on hospice (2) Hyperkalemia: Plan: * Low K restriction has been added to diet order * Serum K has corrected (3) CKD (chronic kidney disease): Plan: * Baseline Cr reportedly 4.0 06/27 * Renal impairment likely on the basis of microvascular disease * Records from Dr. Elio Benitez and Zane Adams indicate that Cr has been 4.0 dating back to at least early 04/27. Both providers have discussed [employer] with patient and he has attended dialysis education classes. He indicated on both accounts that HD is not consistent with his perceived goals of care or quality of life. I have asked that records be scanned into EMR * Discussed [employer] w/ patient yesterday. He desires only conservative medical management. He wishes to return home with home health/hospice (4) Mental status alteration: Plan: * Improved * 11/12/22 Blood culture - NGTD * 11/12/22 Urind culture - reincubating * Has had hypoglycemia this hospitalization. May require reduction in insulin dosing due to advanced CKD (5) Right thalamic infarction: Plan: * 11/12/22 MRI reveals a new small thalamic infarct (6) Bladder cancer: Plan: * s/p fulguration. Urologist is Dr. Callum Calzada Admission and Anticipated Discharge Date Admission Date: November 12, 2022 Subjective Mr. Ross was evaluated in his hospital room this morning. He denied angina, dyspnea or uremic symptoms Review of Systems Constitutional: no fever Eyes: no problem reported Ear, Nose, Mouth, Throat: no problem reported Respiratory: no cough and no dyspnea Cardiovascular: no chest pain Gastrointestinal: no abdominal pain, no nausea, no vomiting and no diarrhea/loose stools Genitourinary: + hematuria; no dysuria or no difficulty urinating Neurologic: no problem reported Physical Exam Constitutional: not in distress Eyes: PERRL, conjunctivae normal, anicteric sclerae ENMT: Mouth: + dry oral mucous membranes Neck: trachea midline, no thyromegaly Respiratory: normal respiratory effort, lungs clear to auscultation Cardiovascular: RRR, no murmur, no edema Gastrointestinal (Abdomen): normal bowel sounds, soft, nontender, no hepatosplenomegaly Skin: + turgor decreased Neurologic: Speech / Cognition: normal speech and normal cognition Results & Data Vital Signs (Past 12 Hours) Vital Signs Temp Pulse Resp BP Pulse Ox O2 Del Method 11/15/22 07:46 36.7 C 77 20 130/68 97 Room Air 11/15/22 04:00 36.4 C L 82 18 127/68 95 Room Air 11/14/22 23:00 36.4 C L 72 19 137/67 98 Room Air Laboratory Results Laboratory Tests 11/13/22 11/15/22 11/15/22 14:50 05:49 05:49 Sodium 136 Potassium 4.9 Chloride 109 H Carbon Dioxide 22 BUN 63 H Creatinine 4.97 H* Glucose 156 H Calcium 7.6 L Magnesium 2.4 Ur Random Creatinine 101.3 Ur Random Sodium 57 PG Care Time/CCT Total # of Minutes Spent Total Time Spent with Patient: Total time spent is greater than 50% in coordination of care (as documented) at patient's floor/unit and/or counseling patient: Coding Level of Care Code 82815 SUB INP/OBS CARE 3/50MIN Diagnoses JESSICA (acute kidney injury) N17.9 Hyperkalemia E87.5 CKD (chronic kidney disease) N18.9 Mental status alteration R41.82 Right thalamic infarction I63.81 Bladder cancer C67.9
--- NOTE | 2022-11-15 11:43 | Pharmacy Report ---
- Date of Service November 15, 2022 - Pharmacy CVA/TIA Medication Review Medications to Prevent Stroke handout has been added to the patients discharge packet. Antiplatelet(s) * Consideration for aspirin 81 mg PO daily * Antiplatelet therapy deferred due to ongoing hematuria Cholesterol * High intensity statin deferred due to age >75 DVT Prophylaxis * Pharmacologic DVT prophylaxis contraindicated in light of ongoing hematuria Therapeutic Anticoagulation * No history of Afib/Aflutter noted Type 2 Diabetes * Patient has T2DM with excellent HbA1c * Goals of care in the process of being established (palliative care consulted)
--- NOTE | 2022-11-15 13:53 | Palliative Care Progress Note ---
Date of Service November 15, 2022 Assessment & Plan (1) Palliative care by specialist: Plan: Met with pt/family. Provided overview of Palliative Medicine, a subspecialty that provides specialized medical care for people living with a serious illness by offering a focus on quality of life. Palliative Medicine is often conflated with hospice: I advised patient/family that Palliative and hospice can be partners but we are not the same. It is important to understand the difference so that we may be informed, and not afraid. Palliative Medicine works to improve QOL through reduction of symptom burden/more control over their illness, for both the patient and family. Palliative medicine clinicians are board certified, specially-trained and another member of the patient's medical care team. We often provide an extra layer of support because our care is based on the needs of the patient, not the prognosis; as such, it's appropriate at any age/advancing stage of a serious illness and can be provided along with curative treatment. Palliative Medicine clinicians are also trained in advanced communication methodologies, to facilitate complex discussions about advanced illness planning, which are needed to help assure that the treatment choices match the patient's goals, aka delivering Goal Concordant care. Finally, we discussed that hospice is a visiting nurse service that focuses on care delivered at the very end of life for patients with terminal illness, with life expectancy less than 6 month. (2) Discussion about advance care planning held with family member: Plan: Met with pt and family at bedside for face to face 40min discussion re ACP: Advance illness planning conversations are conducted to review goals and expectations, support shared decision-making, and engage in disease specific advance care planning. This type of advance care planning is sometimes referred to as 'preparedness planning. It is used to review the risks and benefits of offered therapy, elicit and deepen understanding of the underlying illness and therapeutic options, ensure adequate psychosocial support, address existential concerns and coping, and engage in end-of-life planning. Preparedness planning is not meant to replace informed consent discussions. Palliative medicine plays a role in the process of deepening a patients understanding of this specific medical intervention and ensuring this treatment aligns with their goals of care remains a central tenet of the planning conversation. We reviewed that all chronic/progressive disease has a declining trajectory over time where facets of patient self-identity and independence are lost. Every acute event leads to a further decline, resulting- many times, in a new baseline. Advised that the greatest priority is to determine what matters most to pt, then family and to develop a plan of care that is aligned with those priorities. I provided education about the hospice benefit: an interdisciplinary program offered by nurses, nurses aides, social workers, chaplains and a medical transcription radiology for patients with a terminal condition and a life expectancy of less than 6 months. This is covered by Medicare at 100%/no out of pocket expense to patient and all meds/supplies needed by patient for the reason they are on hospice are paid for/covered by hospice. The goal is assure quality of life of the patient in their home setting (home, group home, inpatient hospice setting) by providing symptoms management, psychosocial and spiritual support. However, they cannot offer 24 hours care and if the family is unable to provide that care, they will have to consider personal care with out of pocket cost vs. group home placement. We discussed the goals of hospice as a patient service and the goals of care; we discussed EOL trajectories and transitions sarah the emotional impact of realizing mortality as a concrete reality from prior abstract considerations. Pt was reassured that no matter where they are along this trajectory, they are not alone - their medical team will remain by their side through their journey. Discussed the pros/cons of accepting help when especially weakened and distressed by pain-which would also help provide relief/decrease caregiver burden/strain. Pt/family were educated re EOL w/ESRD:Pt stopping dialysis may live anywhere from one week to several weeks, depending on the amount of kidney function they have left and their overall medical condition.In hospitalized patients who stopped dialysis,confusion/agitation was reported to affect 70% of patients, followed by pain (55%), dyspnea (48%), nausea (36%), twitching/seizures (27%), anxiety/psychological distress (27%), pruritis (24%), and peripheral edema (21%). Advised thatmean survival following dialysis withdrawal is 8-10 days (although rarely can be many weeks); would note that advanced age, multiple comorbidities+frailty, I anticipate this will be shorter anticipated survival. Encouraged family to notify others who may want to visit or speak with pt, as periods of lucidity will decline as ESRD progresses along this EOL trajectory. I addressedthe likelihood of progressive encephalopathy. Reassure dpatient/familythat symptoms can be adequately treatedbut drugs with sedating side effects may be necessary to ensure comfort. Discusseddiet: provide pt witha liberal, pleasure-based dietto focus on comfort and QOL, acknowledging that this mayworsen symptoms from edema. (Sources: - https://www.mypcnow.org/fast-fact/lvixhkdnmavqcbw-yh-xpjvtfbp-receiving-dialysis / -Howie WEINER. End-of-life care preferences and needs: perceptions of patients with chronic kidney disease. Clinical Journal of the [place] Society of Nephrology: CJASN. 2010;5:195-204. -Glenn KF, Francisco B, Natalio V and Cecy CHRISTOPHER. Employment among Patients Starting Dialysis in the [place]. Clinical Journal of the [place] Society of Nephrology: CJASN. 2018. -Brian BARRIOS, Adrián MJ, Kinsey DM. Practical considerations in dialysis withdrawal. To have that option is a blessing. NASREEN. 2003; 289:4455-0832. -Howie WEINER and Blanca MIRELES. Impact of pain and symptom burden on the health- related quality of life of hemodialysis patients. Journal of Pain and Symptom Management. 2010;39:477-85.) (3) Vascular dementia: Plan: pt, and dtr state they do not want treatment for dementia, knowing the renal disease is end stage and the potential benefit of dementia meds will not be actualized in this relatively short interim. I agreed with them and reviewed that based on 45 trials (n=22,431) and three observational studies (n=190,076) that evaluated acetylcholinesterase inhibitors (AChEIs) (i.e., donepezil, galantamine, rivastigmine) and memantine, these medications may improve measures of global cognitive function in the short term, but the magnitude of change is small. (Delphine CD, Dorie LA, Rafy RC, et al. Screening for Cognitive Impairment in Older Adults: An Evidence Update for the [place]. Preventive Services Task Force. Rosalina (): Agency for Healthcare Research and Quality ([place]); September 2019.) (4) Confusion: (5) CKD (chronic kidney disease), stage IV: Plan Home with hospice, they choose [facility]. CM aware. They would like dc home with hospice today. They identify needing a shower chair for DME but nothing else for now. I have updated nursing, CM and primary team. I provided and dtr with my contact information should future ESRD symptom mgt needs arise. Thank you for allowing us to participate in the ongoing care of this patient. Please don't hesitate to call or page with any additional concerns. Dr. Carole Acevedo DNP Director, Palliative Care Admission and Anticipated Discharge Date Admission Date: November 12, 2022 Subjective pt doing well, and dtr at bedside very happy with hospice dc plan, would like more info about range of services pt without acute complaints, no new pain, n/v or dyspnea he tells me he wants to go home today Review of Systems Review of Systems: All systems reviewed & are unremarkable except as noted in Subjective Physical Exam Constitutional: WD/WN, vitals as above Eyes: PERRL, conjunctivae normal, anicteric sclerae ENMT: external ear and nose normal, oropharynx normal (+[place] moderate) Neck: trachea midline, no thyromegaly (no stridor) Respiratory: normal respiratory effort, able to speak in complete sentences and symmetric chest movement Auscultation: + diminished lung sounds Cardiovascular: RRR, no murmur, no edema Gastrointestinal (Abdomen): normal bowel sounds, soft, nontender, no hepatosplenomegaly Musculoskeletal: mild generalized weakness. repositions in bed without assistance, gait not assessed Skin: no rashes, warm and dry Neurologic: Mini-Cog Instructions for Administration & Scoring Step 1: Three Word Registration - Version 1: banana, sunrise, chair Step 2: Clock Drawing- beverly 1230 appropriately but did not list all the numbers Step 3: Three Word Recall - chair Version 1 Banana [place] Chair Version 4 [place] [employer] Finger Version 2 Leader Season Table Version 5 [employer] Garden Picture Version 3 Village Kitchen Baby Version 6 Daughter Thania Serna Word Recall: ___1___ (0-3 points) 1 point for each word spontaneously recalled without cueing. Clock Draw: __1____ (0 or 2 points) Normal clock = 2 points. A normal clock has all numbers placed in the correct sequence and approximately correct position (e.g., 12, 3, 6 and 9 are in anchor positions) with no missing or duplicate numbers. Hands are pointing to the 11 and 2 (11:10). Hand length is not scored. Inability or refusal to draw a clock (abnormal) = 0 points. Total Score: ___2___ (0-5 points) Total score = Word Recall score + Clock Draw score. A cut point of <3 on the Mini-Cog has been validated for dementia screening, but many individuals with clinically meaningful cognitive impairment will score higher. When greater sensitivity is desired, a cut point of <4 is recommended as it may indicate a need for further evaluation of cognitive status. References 1. Deana Clements, Gaye PIKE, Michelle PJ et al. The Mini-Cog as a screen for dementia: Validation in a population-based sample. J Am Geriatr Soc 2003;51:41818063. 2. Gaye Campuzano, Juvenal Reece et al. Improving identification of cognitive impairment in primary care. Int J Geriatr Psychiatry 2006;21: 867720. 3. Gaye Villalta et al. Time that tells: Critical clock-drawing errors for dementia screening. Int Psychogeriatr. 2007; 20(3): 527958. 4. Jerilyn K, Srikanth J et al. Cognitive tests to detect dementia: A systematic review and meta-analysis. NASREEN [employer]. 2015; E1-E9. 5. Rolan Lynch et al. Screening for cognitive impairment in an elderly population: Acceptability and results using different versions of the Mini-Cog. J Am Geriatr Soc 2011; 59: 309-213. 6. Rolan Lynch et al. Finding dementia in primary care: The results of a clinical demonstration project. J Am Geriatr Soc 2012; 60: 210-217. 7. Gaye Reece & Deana Clements. The Mini-Cog: Outdoor Education Teacher operating characteristics with the expert and naive raters. Int J Geriatr Psychiatry 2001; 16: 216-222. Mini-Cog Karthikeyan Leblanc. All rights reserved. Reprinted with permission of the author solely for clinical and educational purposes. May not be modified or used for commercial, marketing, or research purposes without permission of the author ([email or web address]). v. [email or web address] Psychiatric: Orientation: alert, oriented to person, oriented to place and cooperative Apperance: appropriately dressed Eye Contact: good eye contact Speech: normal rate/rhythm/volume of speech Affect: + flat affect Results & Data Vital Signs (Past 12 Hours) Vital Signs Temp Pulse Resp BP Pulse Ox O2 Del Method 11/15/22 11:02 36.6 C 65 18 121/67 98 Room Air 11/15/22 07:46 36.7 C 77 20 130/68 97 Room Air 11/15/22 04:00 36.4 C L 82 18 127/68 95 Room Air Laboratory Results reviewed PG Care Time/CCT Total # of Minutes Spent Total Time Spent: 60 Total Time Spent with Patient: Total time spent is greater than 50% in coordination of care (as documented) at patient's floor/unit and/or counseling patient: Advanced Care Planning 73528 Advanced Care Planning 30 Min [place] [address] SUB INP/OBS CARE 3/50MIN Patient Type Established History Comprehensive Exam Comprehensive Medical Decision Making Moderate Complexity Diagnoses Palliative care by specialist Z51.5 Discussion about advance care planning held with family member Z71.0 Vascular dementia F01.50 Confusion R41.0 CKD (chronic kidney disease), stage IV N18.4 Additional Codes Advanced Care Planning - 65979 Advanced Care Planning 30 Min: 27501 Advanced Care Planning 30 Min ([id number])
--- NOTE | 2022-11-15 15:23 | Discharge Summary ---
Date of Service date of admission - November 12, 2022 date of discharge - November 15, 2022 Admission HPI Per Admitting Provider Kingsley Ross is an 87 year old male who presnts to the ER with multiple concern from his family. He patient initially felt he needed to be here but then also tells me nothing is wrong. History mostly taken from his daughter and at bedside who have all the concerns but timelines are difficult to put together and may not be completely accurate. Relatively subacute deterioration over months but also had some more minor memory problems for the last few years. However dramatic decline over the last 2 months and especially over the last week. He is now sleeping all the time, not getting up to eat the last couple of days. Yesterday he was on the toilet for an hour and either was unable to get up or couldn't remember how. He has had gradual decline in his mobility and now requiring a walker (previously using a cane for many years). Also some concern with change in personality and he has become more mean spirited. Increased confusion and memory retention especially with remembering the right date. Nothing tastes right over the last 6 months. 2 months ago although he was no completely normal his reports they were still doing there usual activities and going out for breakfast and lunch to restaurants. On further questioning in July he had Covid which was treated at home with Simeon. With hindsight decline appears to correlate with getting this. The patient denies any chest pain, presyncope, orthopnea, PND, palpitations, shortness of breath, cough, nasal congestion, sore throat, sinus pain, abnormal pain, change in bowels, unintentional weight loss, hemoptysis, hematemesis, epistaxis, melena or bright red blood in stool. He has chronic hematuria from bladder cancer and was supposed to have 6 [facility] Principal Diagnosis 1. acute metabolic encephalopathy 2nd to acute stroke, hypoglycemia, and acute/chronic CKD 2. severe hypoglycemia - resolved 3. chronic kidney disease stage 5 - worsening 4. acute right thalamic stroke 5. diabetes 6. chronic hematuria 7. history of bladder cancer 8. acute kidney injury Discharge Exam gen - NAD, sitting in chair neck - no JVD mouth - MMM heart - RRR, s1 s2 lungs - CTA b/l abd - soft NT ND BS+ ext - pulses 2+ b/l, trace edema b/l neuro - no facial droop; speech fluent/clear; strength 5/5 x 4 exts Discharge Data Allergies Allergy/AdvReac Type Severity Reaction Status Date / Time ciprofloxacin Allergy Unknown Rash Verified 04/25/22 14:27 codeine Allergy Unknown FUNNY Verified 04/25/22 14:27 FEELING ON FACE niacin AdvReac Unknown FLUSHED Verified 04/25/22 14:27 Consultations Neurology Nephrology Palliative Care PT, OT Speech therapy Procedures Performed Echocardiogram - Ordered Studies Chest X-Ray 11/12/22 13:27 XR chest 1V portable CLINICAL HISTORY: weakness COMPARISON STUDY: Chest radiograph July 05, 2018. FINDINGS: Lung volumes are normal. Lungs are clear. There is no pneumothorax or pleural effusion. Cardiomediastinal silhouette is stable. There is no evidence for pulmonary edema. IMPRESSION: No acute cardiopulmonary findings. ACT 112: Negative or not required by law. Electronically signed by: Arjun Guillory M.D. 11/12/2022 2:[address] 11/12/22 13:27 CT OF THE HEAD WITHOUT CONTRAST CLINICAL HISTORY: Confusion. COMPARISON STUDY: No previous studies for comparison. CT DOSE: 773.57 mGy.cm TECHNIQUE: Helical axial images of the head were obtained without IV contrast. Automated exposure control was utilized for the study. A dose lowering technique was utilized adhering to the principles of ALARA. FINDINGS: No acute intracranial hemorrhage, midline shift or mass effect is present. Mild atrophy is noted. White matter hypodensity suggests small vessel disease. There is a 1.2 cm hypodensity within the anterior right thalamus on axial image 12 of 28. The ventricular system is unremarkable. The basal cisterns are patent. No extra-axial collections are present. There are no findings to suggest acute dural sinus thrombosis or acute territorial infarct. No significant calvarial abnormalities are present. Visualized portions of the sinuses and mastoid air cells are clear. IMPRESSION: 1. No acute intracranial hemorrhage. 2. Age indeterminate 1.2 cm infarct within the anterior right thalamus. ACT 112: Negative or not required by law. Electronically signed by: Arjun Guillory M.D. 11/12/2022 2:12 PM Renal Ultrasound 11/12/22 14:45 RENAL ULTRASOUND CLINICAL HISTORY: ?JESSICA COMPARISON STUDY: CT of the abdomen and pelvis September 25, 2019. Renal ultrasound May 29, 2013. TECHNIQUE: Sonography of the kidneys and the urinary bladder was performed. FINDINGS: The right kidney measures 8.1 cm in maximal dimension and the left measures 7.2 cm. There is no hydronephrosis. No renal calculus or mass is identified by sonography. There is moderate renal atrophy. Bladder wall irregularity is noted. IMPRESSION: 1. No hydronephrosis. Moderate bilateral renal atrophy. 2. Bladder wall irregularity. This is nonspecific and may be chronic. However, cystitis or urothelial lesion could appear similar. Findings could be correlated with urinalysis and urine cytology. ACT 112: Negative or not required by law. Electronically signed by: Arjun Guillory M.D. 11/12/2022 5:11 PM Carotid Doppler Study 11/12/22 15:37 CAROTID ARTERY ULTRASOUND CLINICAL HISTORY: stroke workup COMPARISON STUDY: None. TECHNIQUE: Real-time, grayscale, and color Doppler sonography of the carotid and vertebral arteries was performed. Images were viewed in the transverse and longitudinal planes. FINDINGS: This study was compromised given difficulty suspending respiration. There is moderate atherosclerotic plaque. Velocity measurements are listed below. COMMON CAROTID PEAK SYSTOLIC VELOCITY (CM/S): RIGHT 61 LEFT 65 ICA PEAK SYSTOLIC VELOCITY (CM/S): RIGHT 68 LEFT 78 Systolic ratios between the internal to common carotid arteries were normal. Antegrade flow is seen in the vertebral arteries. The external carotid arteries are patent. IMPRESSION: Moderate plaque without sonographic evidence for a hemodynamically significant stenosis within the bilateral common carotid or internal carotid arteries. ACT 112: Negative or not required by law. Electronically signed by: Arjun Guillory M.D. 11/12/2022 5:31 PM Brain MRI 11/13/22 00:08 Exam(s): MRI HEAD Without Contrast History: Reason for exam: stroke on CT. Exam: MR HEAD Without Contrast Comparison: CT head 11/12/2022 Technique: Multisequence multiplanar MRI of the brain on 1.5 Jessica MRI scanner Findings: On the diffusion images there is mild restricted diffusion hyperintensity on trace sequence and hypointensity on ADC map involving a 1.2 cm infarct in anterior right thalamus and corresponds to the CT finding. Findings are suggestive of an acute/subacute infarct. Remaining ardon-white matter differentiation is seen to be normal. Mild involutional changes are seen. Mild additional scattered chronic white matter changes of small vessel ischemic disease. Status post bilateral lens replacement. Globes, orbits, parasellar region, cerebellopontine angles are normal. Paranasal sinuses, mastoid air cells are clear. Impression: 1. Restricted diffusion suggesting acute to slightly subacute infarct involving the right anterior thalamus. 2. Mild involutional changes and some scattered chronic white matter changes of small vessel ischemic disease. Electronically signed by: Jason Chowdary MD 11/13/22 01:56 AM Head MRA 11/13/22 00:08 Exam(s): MRA HEAD Without Contrast History: Reason for exam: stroke work up. Exam: MRA HEAD Without Contrast Comparison: MRI brain 11/12/2022 Technique: Using [id number] technique MRA of the [place] is performed. Reformatted MIP images are generated. Findings: Bilateral internal carotid at the level of the skull base, horizontal portion, vertical portion, cavernous carotid, bilateral supraclinoid portion, carotid terminus are patent. Ophthalmic artery, bilateral anterior and middle cerebral arteries are normal. Dominant right vertebral artery. Basilar junction, cerebellar arteries, posterior cerebral arteries are visualized and normal. Patent right posterior communicating artery. Impression: 1. Normal MRA of [place]. Electronically signed by: Jason Chowdary MD 11/13/22 01:59 AM Hospital Course (1) JESSICA (acute kidney injury): JESSICA in setting of CKD stage 5. By report baseline Cr is ~4. At time of admission patient was volume contracted and thus IV fluids were administered. Despite IV fluids his creatinine did not improve. Creatinine was 4.9/5 just prior to discharge. Recent imaging of kidneys without obstruction. Seen by [facility] [place] -- patient consistently stated he would NOT want hemodialysis if his situation called for such. Thus, palliative care was consulted to refine goals of care. Patient and his family desired for him to return home with hospice services in place. (2) Chronic kidney disease, stage V: Baseline Creatinine, per records, was ~4 in 2021. He presented with Creatinine of 4.7. (3) Hyperkalemia: 2nd to #1 Treated with potassium binders (4) Acute metabolic encephalopathy: 2nd to severe hypoglycemia, JESSICA, and likely subacute right sided thalamic stroke Mental status did improve during his stay (5) Failure to thrive: By report had COVID infection in 07/2022 and he has declined on global scale since then. He now has JESSICA in setting of CKD, subacute thalamic stroke, etc. All of the above likely contributing to failure to thrive. He is returning home with home hospice services in place. (6) Right thalamic infarction: Brain MRI showed acute to subacute infarct involving right thalamus Brain MRA normal Carotid ultrasound negative Echo without source of thrombus Tele without a.fib/flutter Pt had little if any symptoms/signs of this stroke [facility] consulted anti-platelet agents (ie - aspirin) to be avoided due to ongoing hematuria chemical DVT prophylaxis was also avoided due to active hematuria PT, OT, speech evals were completed at discharge statin therapy was NOT recommended as he is transitioning to home hospice again no anti-platelet agents recommended either (7) Anemia: Iron studies c/w Fe def anemia B12/folate wnl likely has Fe def due to chronic hematuria no replacement advised due to transition to hospice at home (8) Bladder cancer: History of such - 2014 per records Chronic hematuria may very well be due to recurrent bladder cancer (9) Diabetes mellitus, type 2: A1c 6.2% had severe hypoglycemia at time of presentation to hospital likely that his insulin requirements are much less in setting of advanced CKD, failure to thrive, etc. at discharge I advised against taking insulin in light of transitioning to hospice most BSGs while here were acceptable (10) Vascular dementia: (11) Hematuria: 2nd to bladder ca? other? no work-up moving forward - transitioning to hospice (12) Hypoglycemia: present at time of admission resolved, has not recurred d/c insulin (13) Back pain: tylenol 1gm TID treat symptoms for now - will not pursue work-up in light of transitioning to hospice Plan at discharge he will continue his glaucoma eye drops, flomax, tylenol prn, and zofran/ativan Home Health Attestation I certify that this patient is under my care and that I, or a physicians yard assistant working with me, had a face to-face encounter that meets the home health fiec-wb-hlae encounter requirements with this patient. The encounter with the patient was in whole, or in part, for the following medical condition, which is the primary reason for home health care (list medical condition): I certify that, based on my findings, the following services are medically necessary home health services: My clinical findings support the need for the above services because: Further, I certify that my clinical findings support that this patient is homebound (i.e. absences from home require considerable and taxing effort and are for medical reasons or yazidi services or infrequently or of short duration when for other reasons) because: Certification for Home Health Services: Based on the above findings, I certify that this patient is confined to the home and needs intermittent jail care, physical therapy and/or speech therapy or continues to need occupational therapy. The patient is under my care, and I have initiated the establishment of the plan of care. This patient will be followed by a physician who will periodically review the plan of care. Total Time Total Time Spent Total Time Spent (In Minutes): 40 Discharge Plan Discharge Items Patient Disposition: Hospice - Home Reason For Visit: ALTERED MENTAL STATE Discharge Diagnosis: 1. altered mental status/confusion - likely due to acute stroke, low blood sugar, and worsening kidney disease 2. severe hypoglycemia (low blood sugar) - resolved 3. chronic kidney disease stage 5 - worsening 4. acute stroke 5. diabetes 6. hematuria (blood in urine) 7. history of bladder cancer Activity: Resume your previous activity Non-emergency contact: Primary Care Provider and Specialist Call non-emergency contact if: you have any medication questions, your symptoms worsen, your pain is not controlled, your pain is worsening, your pain is unusual for you and your pain is concerning for you Follow-up/Referrals: [facility] [Non-Staff] - Diet: Carb Consistent or DM2 Addtl Attending Provider Instructions: Mr Ross, You were hospitalized for increasing fatigue, severe sleepiness, confusion, poor appetite, and a host of other symptoms. We found that your blood sugar was very low, that your kidney function had gotten much worse, and that you had a small stroke deep in the brain on the right side. Despite several days of IV fluids your creatinine, or kidney function level in the blood, did not improve very much. I suspect that much of your loss of taste, increasing weakness, and gradual decline over the last few months was because of your kidney disease getting worse. You were very consistent in telling us that you did not wish to pursue dialysis for your severe kidney disease. Our palliative care team met with you and your family. At this time you will be returning home with your and hospice services through [facility] will be set up for you. A hospice nurse will check on you several times each week at your home. They will monitor for any pain, nausea, difficulty breathing, or any other symptom that occurs. Recommendations - 1. I would stop your insulin at this time. Most of your blood sugars during this stay were about 150-225. I am concerned that even using a markedly reduced dose of lantus insulin still may cause you to go "low" with your blood sugars. You can check your sugars a couple of times each day over the next few days. If your sugars remain about 225 or less I would continue to HOLD the lantus insulin. 2. Stop magnesium supplement. 3. Ok to continue tamsulosin for your urinary flow. 4. For any nausea or vomiting - * ondansetron 4mg every 6 hours as needed 5. For severe anxiety, severe insomnia, or significant agitation may use - * lorazepam 0.25mg every 8 hours as needed * this medication will cause sleepiness/drowsiness 6. For back pain and other locations of pain - * tylenol (acetaminophen) 1000mg every 8 hours scheduled (3 times a day) If you have any problems, questions, new symptoms, increasing pain, or any other concerns please contact [facility] first. They will be able to address the majority of your problems either over the phone or in person through a home visit. It was my pleasure to care for you and please enjoy being home with your ! -Dr Ca Pending Studies at Discharge: No Stand-Alone Forms: My [facility] [place], Smoking Cessation Medications and DC Order Prescriptions: New acetaminophen [Tylenol Extra Strength] 500 mg Tablet 1,000 mg PO TID Qty: 30 0RF Rx Instructions: purchase [id number] ondansetron 4 mg tablet,disintegrating 4 mg PO Q6H PRN (Reason: nausea and vomiting) Qty: 10 0RF lorazepam [Ativan] 0.5 mg tablet 0.25 mg PO Q8H Qty: 14 0RF Rx Instructions: for severe anxiety, agitation, or severe insomnia Continued tamsulosin 0.4 mg Capsule 0.4 mg PO QAM brimonidine-timolol 0.2-0.5 % drops 1 drp OPB BID difluprednate 0.05 % drops 1 drp OPR DAILY Discontinued insulin glargine [Basaglar KwikPen U-100 Insulin] 100 unit/mL (3 mL) Insulin Pen 25 unit SUBCUT QPM magnesium oxide 400 mg magnesium tablet 400 mg PO DAILY Rx Instructions: AM Discharge Orders: Discharge Order (Routine); Ordered 11/15/22 Ordered By: Fabrizio Ca Admission Data Admit Date/Time: 11/12/22 15:34 Attending Provider: Fabrizio Ca Admit Provider: Fabrizio Stallworth Primary Care Provider: PCP,NO Other Providers: Fabrizio Stallworth ; Lalo Barrientos ; Alfredito Lynn ; Genevieve Garcia ; [facility] Other Interventions: Discharge Summary Assessment (RN) Last Done: 11/15/22 15:21 Coding Level of Care Code 89422 INP/OBS DISCH >30 MIN Diagnoses JESSICA (acute kidney injury) N17.9 Chronic kidney disease, stage V N18.5 Hyperkalemia E87.5 Acute metabolic encephalopathy G93.41 Failure to thrive Right thalamic infarction I63.81 Anemia D64.9 Bladder cancer C67.9 Diabetes mellitus, type 2 E11.9 Vascular dementia F01.50 Hematuria R31.9 Hypoglycemia E16.2 Back pain M54.9
== END 2022-11-15 16:30 | disposition hospice, home (50) | DRG 64 ==
LOC: ED 13:10 → 2N 15:34 → SUATTDRO 15:34 → 2N 18:33
DX: Z51.5 Encounter for palliative care; R31.9 Hematuria, unspecified; R62.7 Adult failure to thrive; D63.1 Anemia in chronic kidney disease; I63.9 Cerebral infarction, unspecified; F01.50 Vascular dementia, unspecified severity, without behavioral disturbance, psychotic disturbance, mood disturbance, and anxiety; M54.9 Dorsalgia, unspecified; E11.22 Type 2 diabetes mellitus with diabetic chronic kidney disease; N18.4 Chronic kidney disease, stage 4 (severe); E78.5 Hyperlipidemia, unspecified; Z88.5 Allergy status to narcotic agent; E11.649 Type 2 diabetes mellitus with hypoglycemia without coma; Z87.891 Personal history of nicotine dependence; N17.9 Acute kidney failure, unspecified; Z79.899 Other long term (current) drug therapy; Z85.51 Personal history of malignant neoplasm of bladder; Z79.4 Long term (current) use of insulin; G93.41 Metabolic encephalopathy; Z20.822 Contact with and (suspected) exposure to COVID-19; Z88.1 Allergy status to other antibiotic agents; Z88.8 Allergy status to other drugs, medicaments and biological substances